=== PATIENT | female | born 1965 | race Caucasian/White ===

== ENCOUNTER 2019-02-28 17:41 | Inpatient (IN) | payer MEDICAID, SELFPAY ==
[2019-02-28 18:04] VITALS: BP 148/90; PULSE 88; RESP 16; TEMP 36.7; O2SAT 97; BMI 33.3
[2019-02-28 18:08] VITALS: BP 148/90
--- NOTE | 2019-02-28 18:09 | ECG_ITS ---
Measurements Intervals [place] Rate: 80 P: 168 OR: 181 QRS: 197 QRSD: 84 T: 176 QT: 367 QTc: 425 SINUS RHYTHM ARM LEADS REVERSED [INVERTED P AND QRS IN I] No previous ECG available for comparison [id number]
--- NOTE | 2019-02-28 18:09 | XR_ITS ---
WS: [id number] Portable PA upright chest, 02/28/2019 Clinical Data: Chest pain Comparison: PA and lateral chest, 10/11/2009 Findings: No nodules, masses or effusions are seen. The heart is normal. The pulmonary vascularity is not increased. No pneumonia or pneumothorax is seen. XR/XR chest 1V portable [id number] Impression: Negative chest.
[2019-02-28 18:46] LABS: Basophils % 0.2 %; Eosinophils # 0.2 10^3/uL (0.0-0.8); Eosinophils % 2.5 %; Hemoglobin 14.4 g/dL (11.5-15.3); Lymphocytes # 2.7 10^3/uL (0.8-4.8); Mean Corpuscular Hemoglobin 28.9 pg (28.0-34.0); Mean Corpuscular Volume 90.4 fL (81-99); Mean Platelet Volume 10.9 fL (7.4-10.4); Monocytes # 0.4 10^3/uL (0.2-0.9); Monocytes % 5.6 %; Neutrophils # 3.1 10^3/uL (1.8-7.7); Neutrophils % 48.5 %; Nucleated Red Blood Cells % 0 %; Platelet Count 322 10^3/cmm (130-400); Red Blood Count 4.98 10^6/uL (4.1-5.3); Red Cell Distribution Width 12.8 % (12.1-15.1); White Blood Count 6.3 10^3/uL (4.0-10.0)
[2019-02-28 19:13] LABS: Alanine Aminotransferase 20 U/L (0-33); Albumin Level 4.5 g/dL (3.5-5.2); Alkaline Phosphatase 86 IU/L (35-105); Anion Gap 18.1 (5-19); Aspartate Amino Transferase 12 U/L (0-32); Blood Urea Nitrogen 13 mg/dL (6-20); Calcium 10.4 mg/Dl (8.6-10.0); Carbon Dioxide 26 mmol/L (22-29); Chloride 93 mmol/L (98-107); Globulin 3.3 g/dL (1.3-4.6); Glomerular Filtration Rate 65.5 mL/min (90-130); Glucose 429 mg/dL (74-109); Potassium 4.1 mmol/L (3.5-5.1); Sodium 133 mmol/L (136-145); Total Bilirubin 0.2 mg/dL (0.15-1.2); Total Protein 7.8 g/dL (6.6-8.7)
[2019-02-28 19:14] LABS: Troponin(5th) Baseline 6 ng/mL (0-10)
--- NOTE | 2019-02-28 20:09 | ECG_ITS ---
Measurements Intervals [place] Rate: 78 P: 32 MT: 174 QRS: 4 QRSD: 87 T: 26 QT: 379 QTc: 433 SINUS RHYTHM No previous ECG available for comparison Electronically Signed On 03-01-2019 22:26:05 MANAGER POLICY by Lelia Aguirre M.D. [id number]
[2019-02-28 20:21] LABS: Troponin 5 2HR Delta 0 ABS# (0-10)
--- NOTE | 2019-02-28 21:25 | ED_ITS ---
Entered by Haven Best, acting as scribe for Katharina Collins Cristy Feb 28, 2019 17:41 HPI - Chest Pain General: Chief Complaint: Chest Pain Stated Complaint: cp Time Seen by Provider: 02/28/19 21:24 Source: patient Mode of arrival: ambulatory Limitations: no limitations History of Present Illness: HPI narrative: 53 yo Female presents to ED with complaint of chest pain. Pt states that it was a dull pain that would come and go. Pt states that she was driving when the episode started. Pt states that she got nauseated. MD complaint: chest pain Onset (ago): hour(s) (noon today) Timing of current episode: episodic and still present Prior episodes: No Onset: during rest Pain location: left chest Pain radiation: left shoulder Quality: dull Relieving factors: remaining still Exacerbating factors: nothing Associated symptoms: Reports nausea; Deny diaphoresis, dyspnea, palpitations or syncope Treatment prior to arrival: none Risk Factors: Coronary artery disease risk factors: diabetes Thoracic aortic dissection risk factors: none Review of Systems General: Reports: other (negative unless marked) Const: Reports: fatigue; Denies: diaphoresis Eyes: Denies: change in vision or blurry vision ENMT: Denies: throat pain, painful swallowing, hoarseness, ear pain, ear discharge, Change in hearing or nasal discharge Card: Reports: chest pain; Denies: palpitations, irregular heart rhythm, syncope, pre-syncope, shortness of breath on exertion or shortness of breath when lying down Resp: Denies: shortness of breath GI: Reports: nausea : Denies: flank pain, painful urination, urinary frequency, urinary urgency, decreased urine ouput, urinary incontinence or blood in urine Musc: Denies: neck pain, back pain, extremity pain, extremity swelling, joint pain, joint swelling, joint warmth or joint stiffness Skin/Breast: Denies: rash, skin tenderness or yellow skin Neuro: Denies: headache, numbness in extremities, weakness in extremities, changes in sensation, lack of coordination, difficulty walking, dizziness, vertigo or confusion Endo: Denies: excessive thirst, tired all the time, cold intolerance, excessive sweating, flushing or hot flashes Adrián/Lymph: Denies: easy bruising, easy bleeding, petechiae or enlarged lymph nodes All/Imm: Denies: hives, throat swelling, tongue swelling, facial swelling or acute wheezing PFSH ED PFSH: Statuses (acute, chronic, etc) shown below reflect problem list status as previously entered and may not be historically accurate Medical History Diabetes (Acute) Social History Smoking and tobacco status: never smoked Physical Exam Const: COMMON NORMALS: no apparent distress, oriented x3, no limitations, healthy appearing and well nourished EXAM LIMITATIONS: no altered mental status GENERAL APPEARANCE: cooperative, well kempt and well developed ORIENTATION/CONSCIOUSNESS: Yes awake HENMT: COMMON NORMALS: normocephalic, head/scalp atraumatic, hearing grossly normal bilaterally, external ears normal, EAC's normal, external nose normal and moist oral mucous membranes HEAD & SCALP: normal to inspection, normocephalic and atraumatic FACE & SINUS: normal facial exam and face symmetric NOSE: external nose normal and nares normal EXTERNAL EAR: Yes external ears normal EXTERNAL AUDITORY CANAL: EAC's normal MOUTH: oral and palatal mucosa normal and tongue normal Eye: COMMON NORMALS: PERRL, EOMs intact bilaterally, conjunctivae normal and no scleral icterus GENERAL EYE: normal appearance of both eyes and normal light reflex CONJUNCTIVA: Yes conjunctivae normal SCLERA: sclerae normal CORNEA: Yes corneas normal PUPIL: Yes PERRL DIRECT OPHTHALMOSCOPY: Yes normal light reflex Neck/C-Spine: COMMON NORMALS: full ROM, no lymphadenopathy, supple, no meningeal signs and no JVD GENERAL: Yes normal visual inspection and Yes trachea midline CERVICAL SPINE: Yes cervical ROM normal Chest: COMMONS NORMALS: inspection of chest normal and palpation of chest normal Resp: COMMON NORMALS: normal respiratory effort, no retractions, no use of accessory muscles and clear to auscultation bilaterally EFFORT & INSPECTION: Yes able to speak in complete sentences AUSCULTATION: clear to auscultation bilaterally Cardio: COMMON NORMALS: no JVD, regular rate, regular rhythm, S1 normal heart sound, S2 normal heart sound, no gallops, no clicks, no murmurs and no rub JUGULAR VENOUS DISTENTION: no JVD RATE: regular rate RHYTHM: regular rhythm HEART SOUNDS: S1 normal and S2 normal GI: COMMON NORMALS: soft to palpation, non-tender, no hepatosplenomegaly and no masses INSPECTION: Yes normal to inspection PALPATION: Yes soft and Yes no hepatosplenomegaly : COMMON NORMALS: Yes no CVA tenderness BLADDER/KIDNEY EXAM: Yes no CVA tenderness Back/Pelvis: COMMON NORMALS: no CVA tenderness, thoracic and lumbar spine normal to inspection, no thoracic nor lumbar tenderness and thoraco-lumbar ROM normal Extremity: COMMON NORMALS: normal to inspection, full ROM, normal capillary refill, no joint enlargement, no clubbing, cyanosis or edema and no calf tenderness Neuro: COMMON NORMALS: oriented x3, CN's II-XII intact bilaterally, moves all extremities, no focal motor deficits and no sensory deficits noted MENINGEAL SIGNS: Yes no meningeal signs Psych: COMMON NORMALS: mental status grossly normal, thought process normal, cooperative, affect normal, speech normal and activity/motor behavior normal APPEARANCE: Yes well kempt SPEECH: Yes normal speech THOUGHT PROCESS: normal thought process Skin: COMMON NORMALS: no rashes or lesions noted, skin turgor normal, no jaundice, no petechiae and no mottling GENERAL SKIN EXAM: no rashes or lesions noted and turgor normal Course Vital Signs: Vital signs: Vital Signs Temperature 98.1 F 02/28/19 18:04 Pulse Rate 88 02/28/19 18:04 Respiratory Rate 16 02/28/19 18:04 Blood Pressure 148/90 02/28/19 18:08 Pulse Oximetry 97 02/28/19 18:04 MDM - Chest Pain MDM Narrative: Medical decision making narrative: Patient comes in with a heart score of 5. She is chest pain-free at this time. Based upon her history I have a think she would be best suited to come in for cardiac rule out and stress test. The case was reviewed with Dr. Chantel Gee and she is in agreement. Lab Data: Labs: Lab Results 02/28/19 02/28/19 02/28/19 Range/Units 18:40 18:40 18:40 WBC 6.3 (4.0-10.0) 10^3/ uL RBC 4.98 (4.1-5.3) 10^6/u L Hgb 14.4 (11.5-15.3) g/dL Hct 45.0 (37.0-47.0) % MCV 90.4 (81-99) fL MCH 28.9 (28.0-34.0) pg MCHC 32.0 (30.0-36.0) g/dL RDW 12.8 (12.1-15.1) % Plt Count 322 (130-400) 10^3/c mm MPV 10.9 H (7.4-10.4) fL Neut % (Auto) 48.5 % Lymph % (Auto) 43.0 % [place] % (Auto) 5.6 % Eos % (Auto) 2.5 % Baso % (Auto) 0.2 % Neut # (Auto) 3.1 (1.8-7.7) 10^3/u L Lymph # (Auto) 2.7 (0.8-4.8) 10^3/u L [place] # (Auto) 0.4 (0.2-0.9) 10^3/u L Eos # (Auto) 0.2 (0.0-0.8) 10^3/u L Baso # (Auto) 0.0 (0.0-0.1) 10^3/u L Nucleated RBC % (a uto) 0 % Nucleated RBCs # 0.0 /100WBC Sodium 133 L (136-145) mmol/L Potassium 4.1 (3.5-5.1) mmol/L Chloride 93 L (98-107) mmol/L Carbon Dioxide 26 (22-29) mmol/L Anion Gap 18.1 (5-19) BUN 13 (6-20) mg/dL Creatinine 0.9 (0.5-0.9) mg/dL GFR Calculation 65.5 L (90-130) mL/min Glucose 429 H (74-109) mg/dL Calcium 10.4 H (8.6-10.0) mg/Dl Total Bilirubin 0.2 (0.15-1.2) mg/dL AST 12 (0-32) U/L ALT 20 (0-33) U/L Alkaline Phosphata se 86 (35-105) IU/L Troponin T Baselin e 6 (0-10) ng/mL Troponin T 120 Min [place] (0-10) ng/mL Total Protein 7.8 (6.6-8.7) g/dL Albumin 4.5 (3.5-5.2) g/dL Globulin 3.3 (1.3-4.6) g/dL 02/28/19 Range/Units 19:55 WBC (4.0-10.0) 10^3/ uL RBC (4.1-5.3) 10^6/u L Hgb (11.5-15.3) g/dL Hct (37.0-47.0) % MCV (81-99) fL MCH (28.0-34.0) pg MCHC (30.0-36.0) g/dL RDW (12.1-15.1) % Plt Count (130-400) 10^3/c mm MPV (7.4-10.4) fL Neut % (Auto) % Lymph % (Auto) % [place] % (Auto) % Eos % (Auto) % Baso % (Auto) % Neut # (Auto) (1.8-7.7) 10^3/u L Lymph # (Auto) (0.8-4.8) 10^3/u L [place] # (Auto) (0.2-0.9) 10^3/u L Eos # (Auto) (0.0-0.8) 10^3/u L Baso # (Auto) (0.0-0.1) 10^3/u L Nucleated RBC % (a uto) % Nucleated RBCs # /100WBC Sodium (136-145) mmol/L Potassium (3.5-5.1) mmol/L Chloride (98-107) mmol/L Carbon Dioxide (22-29) mmol/L Anion Gap (5-19) BUN (6-20) mg/dL Creatinine (0.5-0.9) mg/dL GFR Calculation (90-130) mL/min Glucose (74-109) mg/dL Calcium (8.6-10.0) mg/Dl Total Bilirubin (0.15-1.2) mg/dL AST (0-32) U/L ALT (0-33) U/L Alkaline Phosphata se (35-105) IU/L Troponin T Baselin e (0-10) ng/mL Troponin T 120 Min [place] 6.00 (0-10) ng/mL Total Protein (6.6-8.7) g/dL Albumin (3.5-5.2) g/dL Globulin (1.3-4.6) g/dL Discharge Plan Discharge Patient Disposition: Placed in Observation Clinical Impression: Chest pain Condition: Stable Referrals: Lakisha Ellis, HAMPER MAKER MACHINE-C [Primary Care Provider] - Coding Level of Care Code ED Manager Contract for Chg Fwd Exam Problem Focused The documentation recorded by the Estephania james Carmen, accurately reflects the service I personally performed and the decisions made by Karina corey Eli N Feb 28, 2019 17:41
--- NOTE | 2019-02-28 21:37 | PC.NURSE ---
Placed patient on the monitoring manager
[2019-03-01] VITALS (10 sets, daily range): BP systolic 122–148; BP diastolic 72–86; PULSE 64–84; RESP 16–20; TEMP 36.4–36.9; O2SAT 95–98
--- NOTE | 2019-03-01 00:09 | ECG_ITS ---
Measurements Intervals [place] Rate: 70 P: 46 CO: 189 QRS: 13 QRSD: 84 T: 30 QT: 386 QTc: 419 SINUS RHYTHM No previous ECG available for comparison Electronically Signed On 03-01-2019 22:26:17 NANOSYSTEMS ENGINEER by Lelia Aguirre M.D. [id number]
--- NOTE | 2019-03-01 00:31 | NMCV_ITS ---
Kriss Garcia Age: 53 Gender: F : 1965 Exam Date: 03/01/2019 00:31 Ordering Phys: Rufina Blanco MD Technologist: JAYLON Huerta Exam Location: [facility] Indications: Chest Pain STRESS TEST Please see separate stress test report in [facility] for full findings IMAGE PROTOCOL Rest/Stress 1 Lexiscan Day Radiopharmaceutical Dose (mCi) Administration Site Administered by Rest: Tc-99m 10.8 IV JAYLON Huerta Sestamibi Stress:Tc-99m 32.5 IV JAYLON Huerta Sestamibi Rest: 01-Mar-2019 60 Discovery 630 Stress: 01-Mar-2019 60 Discovery 630 0.4mg Lexiscan. Images obtained in supine and prone position. SPECT RESULTS Technical Quality: Good Raw Data Analysis: Normal, Breast attenuation. 38C Chest Wall, Soft tissue attenuation. Image Corrections: No attenuation or motion correction applied Summed Stress Score: 1 Summed Rest Score: 1 Summed Difference Score: 0 PERFUSION FINDINGS Small size perfusion abnormality of mild severity of apical inferior wall on rest and stress images with homogeneous tracer uptake on prone stress images. This is likely suggestive of attenuation artifact. FUNCTIONAL RESULTS (calculated via Gated SPECT) Stress Image LV EF (%): 54 Stress EDV (mL):92 TID: 1.03 Stress ESV (mL):42 FUNCTIONAL FINDINGS: The left ventricle is normal in size. Transient Ischemia Dilatation of 1. There is normal left ventricular systolic function. The left ventricular ejection fraction is normal with a value of 54%. There is normal left ventricular wall thickening. IMPRESSIONS 1. Small sized fixed perfusion abnormality of apical inferior wall with homogeneous tracer uptake on prone stress images. This is suggestive of attenuation artifact. 2. Overall left ventricular systolic function is normal without regional wall motion abnormalities. 3. The left ventricular ejection fraction is normal with a value of 54%. 4. No coronary ischemia based on the study. Ivy Sotelo MD (Electronically Signed) Final Date: 01 March 2019 17:54 S
--- NOTE | 2019-03-01 00:31 | ECG_ITS ---
NAME OF STUDY: LEXISCAN SESTAMIBI STRESS TEST INDICATION: Chest Pain PROCEDURE: At the baseline, the blood pressure was 128/71 mmHg, oxygen saturation 95% with a heart rate of 75 bpm. The electrocardiogram showed normal sinus rhythm, normal axis and possible old anteroseptal infarct. The Lexiscan was infused over a period of 20 seconds. A total of 0.4 milligrams of Lexiscan was infused. The stress phase was continued for a total of 5 minutes. Heart rate at the end of the stress phase was 84 bpm, oxygen saturation 97% with a blood pressure 122/79 mmHg. The EKG at the peak infusion revealed sinus rhythm with no significant ST-T wave changes. Sestamibi was injected 20 seconds after the Lexiscan infusion. Blood pressure at the end of the recovery phase was 124/74 mmHg, oxygen saturation 97% with a heart rate of 85 beats per minute. CONCLUSION: 1. Normal EKG response to LexiScan infusion. 2. No LexiScan induced chest pain or cardiac arrhythmia. 3. Normal blood pressure and heart rate response. 4. Sestamibi/sestamibi perfusion scan pending; see separate report. Electronically Signed On 03-01-2019 17:57:00 LEGAL ACTIVITY ADJUDICATOR by Ivy Sotelo M.D. [id number]
--- NOTE | 2019-03-01 00:35 | PM.HP ---
Providers/Chief Complaint Admitting Physician: Rufina Blanco MD Primary Care Provider: Lakisha Ellis Chief Complaint: Chest pain History of Present Illness Kriss Garcia is a 53 year old female with PMHx of IDDM type II, Morbid obesity, Hypertension, Hyperlipidemia; presents from home with complaints of substernal chest discomfort that started earlier this afternoon while she was driving home. She describes it as a dull tooth ache, primarily in the substernal area with some radiation to the left arm and area underneath the left breast. Pain is intermittent, exacerbated by any exertion/activity. She denies having had prior episode of the same in the past. She felt hot and flushed but denies any shortness of breath, nausea/vomiting. She does recall having had some kind of cardiac work-up though this was over a long time ago. She is insulin-dependent and takes metformin as well for her history of diabetes. She is not a smoker, does admit to not taking her medications as prescribed, intermittently checks her blood sugar which ranges between 250 and 300. There is a positive family history for CAD in her father and paternal grandfather. She has had a history of an irregular heartbeat and was previously taking metoprolol. She denies taking any medications for relief. She called her sister who is her nurse and was advised to seek medical attention in the ER which is what she did. She currently still has some discomfort in the substernal area during my assessment in the ER but has subsided some. CBC is within normal limits, she has mild hyponatremia with a sodium of 133, normal renal function, blood sugar of 429, initial troponin with no noted delta change, no acute ischemic changes noted on EKG. Vital signs are stable. I discussed stress testing which she is agreeable to. Review of Systems Const: Denies: fever, chills or change in appetite Eyes: Denies: change in vision ENMT: Denies: dry mouth Card: Reports: chest pain; Denies: palpitations, irregular heart rhythm, edema, swelling of feet/ankles, lightheadedness, syncope or shortness of breath on exertion Resp: Denies: shortness of breath or productive cough GI: Denies: abdominal pain, nausea, vomiting, vomiting blood or blood in stool : Denies: difficulty urinating, painful urination or urinary frequency Musc: Denies: back pain Skin/Breast: Denies: rash Neuro: Denies: numbness in extremities or weakness in extremities Psych: Denies: anxiety Medications/Allergies Allergies Allergy/AdvReac Type Severity Reaction Status Date / Time No Known Allergies Allergy Verified 02/28/19 18:08 Additional Medication Information Additional Medication Information: -pending med rec PFSH Acute PFSH: Statuses (acute, chronic, etc) shown below reflect problem list status as previously entered and may not be historically accurate Medical History (Updated 03/01/19 @ 01:22 by Rufina Blanco MD) Diabetes (Acute) insulin dependent HTN (hypertension) (Acute) Hyperlipidemia (Acute) Morbid obesity (Acute) Surgical History (Updated 03/01/19 @ 01:18 by Rufina Blanco MD) H/O tubal ligation (Acute) Family History Mother Cancer Colon cancer Father CAD (coronary artery disease) Other Diabetes Social History (Updated 03/01/19 @ 01:19 by Rufina Blanco MD) Smoking and tobacco status: never smoked Alcohol intake: never Substance/Drug Use: never Household members: family Housing: House Vitals/I&O/Wt Last Vital Signs Temp 98.1 F 02/28/19 18:04 Pulse 88 02/28/19 18:04 Resp 16 02/28/19 18:04 BP 148/90 02/28/19 18:08 Pulse Ox 97 02/28/19 18:04 Weight last 48 hrs Weight 82.554 kg Physical Exam Const: COMMON NORMALS: no apparent distress and oriented x3 GENERAL APPEARANCE: cooperative and comfortable NUTRITIONAL APPEARANCE: obese morbidly obese ORIENTATION/CONSCIOUSNESS: Yes awake HENMT: COMMON NORMALS: normocephalic, head/scalp atraumatic, hearing grossly normal bilaterally and moist oral mucous membranes HEAD & SCALP: normocephalic and atraumatic Eye: COMMON NORMALS: PERRL, EOMs intact bilaterally and conjunctivae normal CONJUNCTIVA: Yes conjunctivae normal PUPIL: Yes PERRL Neck/C-Spine: COMMON NORMALS: full ROM GENERAL: Yes normal visual inspection and Yes trachea midline Chest: COMMONS NORMALS: inspection of chest normal and palpation of chest normal Resp: COMMON NORMALS: normal respiratory effort, no retractions, no use of accessory muscles and clear to auscultation bilaterally EFFORT & INSPECTION: Yes able to speak in complete sentences, Yes symmetric chest movement and No tachypneic AUSCULTATION: clear to auscultation bilaterally Cardio: COMMON NORMALS: regular rate, regular rhythm, S1 normal heart sound, S2 normal heart sound and no murmurs RATE: regular rate RHYTHM: regular rhythm HEART SOUNDS: S1 normal and S2 normal GI: COMMON NORMALS: normal to inspection, nondistended, normoactive bowel sounds, soft to palpation and non-tender PALPATION: Yes soft Extremity: COMMON NORMALS: normal to inspection, full ROM and no clubbing, cyanosis or edema; negative for no pedal edema Neuro: COMMON NORMALS: oriented x3, moves all extremities, no focal motor deficits, no sensory deficits noted and gait normal Psych: COMMON NORMALS: mental status grossly normal, thought process normal, cooperative, affect normal and speech normal SPEECH: Yes normal speech THOUGHT PROCESS: normal thought process Skin: COMMON NORMALS: no rashes or lesions noted, no jaundice, no petechiae and no mottling GENERAL SKIN EXAM: no rashes or lesions noted Data : 02/28/19 18:40 02/28/19 18:40 A&P Assessment and plan (1) Chest pain: -chest pain with some typical features -risk factors for CAD including IDDM type II, morbid obesity, HTN, Hyperlipidemia, +FHx -stress testing in AM; NPO after midnight, IVF -telemetry monitoring -monitor vital signs -order lipid panel, A1c in AM Status: Acute Qualifiers: Chest pain type: unspecified Qualified Code(s): R07.9 - Chest pain, unspecified Code(s): R07.9 - Chest pain, unspecified (2) HTN (hypertension): -monitor vital signs -resume oral antihypertensives once med rec confirmed Status: Acute Qualifiers: Hypertension type: essential hypertension Qualified Code(s): I10 - Essential (primary) hypertension Code(s): I10 - Essential (primary) hypertension (3) Hyperlipidemia: -check lipid panel in AM Status: Acute Qualifiers: Hyperlipidemia type: unspecified Qualified Code(s): E78.5 - Hyperlipidemia, unspecified Code(s): E78.5 - Hyperlipidemia, unspecified (4) Morbid obesity: -BMI-33 kg/m2 Status: Acute Code(s): E66.01 - Morbid (severe) obesity due to excess calories (5) Diabetes: -check A1c in AM -Accuchecks; ISS -NPO for stress testing in AM, diabetic diet after Status: Acute Qualifiers: Diabetes mellitus type: type 2 Diabetes mellitus terminal superintendent insulin use: with assisted use Diabetes mellitus complication status: without complication Qualified Code(s): E11.9 - Type 2 diabetes mellitus without complications; Z79.4 - director long term care (current) use of insulin Code(s): E11.9 - Type 2 diabetes mellitus without complications Attestations Medical Necessity Statement*: Kriss Garcia's hospital stay will be less than 2 midnights for work-up of chest pain rule out ACS including stress testing in a.m. Time Spent in Patient Care: Greater than 35 minutes (>than 50% of time spent in counselling and/or direct pt care on unit). Coding Level of Care Code Acute Contact Center Associate for [facility] Fwd Diagnoses Chest pain R07.9 Chest pain type: unspecified HTN (hypertension) I10 Hypertension type: essential hypertension Hyperlipidemia E78.5 Hyperlipidemia type: unspecified Morbid obesity E66.01 Diabetes E11.9; Z79.4 Diabetes mellitus type: type 2 Diabetes mellitus assisted insulin use: with terminal superintendent use Diabetes mellitus complication status: without complication
[2019-03-01 00:52] LABS: Glucose Point of Care 354 mg/dL (70-110)
[2019-03-01] MEDS: dextrose 5%-sod chloride 0.9% 1,000 ML 75 ML IV ×2 (01:06→16:42)
[2019-03-01 01:11] LABS: Troponin 5 6HR Delta 0 ng/L (0-12)
[2019-03-01 02:47] LABS: Basophils % 0.3 %; Eosinophils # 0.2 10^3/uL (0.0-0.8); Eosinophils % 3.1 %; Hemoglobin 13.5 g/dL (11.5-15.3); Lymphocytes # 2.3 10^3/uL (0.8-4.8); Lymphocytes % 38.1 %; Mean Corpuscular HGB Conc 32.9 g/dL (30.0-36.0); Mean Corpuscular Hemoglobin 28.2 pg (28.0-34.0); Mean Corpuscular Volume 85.8 fL (81-99); Mean Platelet Volume 10.9 fL (7.4-10.4); Monocytes # 0.4 10^3/uL (0.2-0.9); Monocytes % 6.6 %; Neutrophils # 3.1 10^3/uL (1.8-7.7); Neutrophils % 51.6 %; Nucleated Red Blood Cells % 0 %; Platelet Count 290 10^3/cmm (130-400); Red Blood Count 4.78 10^6/uL (4.1-5.3); Red Cell Distribution Width 12.4 % (12.1-15.1); White Blood Count 6.1 10^3/uL (4.0-10.0)
[2019-03-01 03:25] LABS: Alanine Aminotransferase 18 U/L (0-33); Albumin Level 4.4 g/dL (3.5-5.2); Alkaline Phosphatase 73 IU/L (35-105); Anion Gap 14.8 (5-19); Aspartate Amino Transferase 11 U/L (0-32); Blood Urea Nitrogen 13 mg/dL (6-20); Calcium 9.8 mg/Dl (8.6-10.0); Carbon Dioxide 25 mmol/L (22-29); Chloride 97 mmol/L (98-107); Chol HDL Ratio 8.61 mg/dL (0.0-4.40); Cholesterol 310 mg/dL (0-200); Globulin 2.5 g/dL (1.3-4.6); Glomerular Filtration Rate 129.1 mL/min (90-130); Glucose 400 mg/dL (74-109); HDL Cholesterol 36 mg/dL (60-100); LDL Cholesterol Calculated 201 mg/dL (50-129); LDL HDL Ratio 5.58 RATIO (0.00-3.22); Potassium 3.8 mmol/L (3.5-5.1); Sodium 133 mmol/L (136-145); Total Bilirubin 0.3 mg/dL (0.15-1.2); Total Protein 6.9 g/dL (6.6-8.7); Triglycerides 363 mg/dL (0-150)
[2019-03-01 03:51] LABS: Estmated Average Glucose 326
[2019-03-01 06:44] LABS: Glucose Point of Care 254 mg/dL (70-110)
[2019-03-01 10:31] LABS: Glucose Point of Care 223 mg/dL (70-110)
--- NOTE | 2019-03-01 12:13 | PC.CHAP ---
Pastoral Care Encounter/Spiritual Assessment Type of Contact [] Declined supervisor covering and lining visit [] Patient/Family/Request visit [] Outpatient visit [] Follow-up visit [] Physician referral [] Code/Alert [] Routine visit [] Staff referral [] Actively dying [x] Patient sleeping [] Family support [] [] Out of room [] Palliative care [] [] Receiving care in room [] Pre-surgical visit [] Trauma [] Long length of stay [] ICU visit [] Other: Relational/Emotional Strength [] Patient feels connected with others/family/visitors/staff [] Distress [] Loneliness/isolation [] Abandonment Spirituality of Patient [] Person of Roxanne [] Attends Mosque of their Roxanne [] Believes in Prayer [] Reads Bible or Roman Catholic materials [] There are Spiritual issues to be addressed Vp Informatics Interventions [] Prayer [] Active listening [] Non-anxious presence [] Spiritual/emotional support [] Crisis/trauma care [] Spiritual counseling [] Bereavement support [] Provided bereavement packet [] Provided Bible/devotional materials [] Provided toy/stuffed animal, coloring book to patient or family member [] Completed spiritual assessment [] Provided Communion [] Anointing/[place] [] Salvation [] Other: Impact on Illness or Injury [] Angry [] Fearful [] Anxious [] Often cries [] Exhaustion [] Unable to work [] Unable to attend mormonism [] Unable to walk/stand [] Unable to read [] Unable to drive [] Unable to eat/drink [] Unable to sleep [] Unable to be with family [] Other: Summary Time spent with patient
[2019-03-01] MEDS: acetaminophen 500 mg Tablet 1000 MG PO ×2 (12:28→20:01)
[2019-03-01] MEDS: regadenoson 0.4 Mg/5 ml Syringe IVP (13:13)
--- NOTE | 2019-03-01 15:19 | PM.PN ---
Subjective Subjective: Interval history: She seems to be doing better this afternoon. No chest pain or shortness of breath through the day. Discussed with her more her chest pain that she had yesterday which prompted her to come in. Sounds like this happened while she was driving. Notes shortness of breath associated with it. No diaphoresis. She has been under a lot of stress lately her father 2 weeks ago. Other family members have been having poor health. She feels like it is probably more related to that. She became very tearful as she was discussing this. Vitals/I&O/Wt Last Vital Signs Temp 98.0 F 03/01/19 11:20 Pulse 75 03/01/19 14:35 Resp 18 03/01/19 11:20 BP 136/72 03/01/19 13:15 Pulse Ox 97 03/01/19 14:35 03/01/19 03/01/19 03/01/19 06:59 14:59 22:59 Intake Total 0 / 0 Output Total 1000 / 1000 Balance 0 / 0 -1000 / -1000 Weight last 48 hrs Weight 182 lb Physical Exam Narrative: EXAM NARRATIVE: General: No acute distress, Alert. Well nourished. Heart: Regular rate and rhythm. No murmurs, rubs or gallops. Normal capillary refill. Lungs: Clear to auscultation. No wheezes, rhonchi or rales. Abdomen: Positive bowel sounds. Non-tender, non-distended. No hepatosplenomegaly. No gaurding. Extremities: No clubbing, cyanosis, or edema. Negative Andreina's A&P Assessment and plan (1) Chest pain: I suspect this is probably more due to her stress and anxiety. Troponins were negative. She does have some significant cardiac risk factors though. We will await results of her stress test. If this is negative we will proceed with discharge home. Status: Acute Qualifiers: Chest pain type: unspecified Qualified Code(s): R07.9 - Chest pain, unspecified Code(s): R07.9 - Chest pain, unspecified (2) Diabetes: Status: Acute Qualifiers: Diabetes mellitus type: type 2 Diabetes mellitus superintendent terminal insulin use: with superintendent terminal use Diabetes mellitus complication status: without complication Qualified Code(s): E11.9 - Type 2 diabetes mellitus without complications; Z79.4 - terminal system operator (current) use of insulin Code(s): E11.9 - Type 2 diabetes mellitus without complications Attestations Medical Necessity Statement*: Likely discharge today Coding Level of Care Code Acute 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
[2019-03-01 16:50] LABS: Glucose Point of Care 217 mg/dL (70-110)
--- NOTE | 2019-03-01 21:05 | PC.NURSE ---
pain pain has improved, pt stated pain in head is at a 2 on a 0-10 scale.
[2019-03-01 21:20] LABS: Glucose Point of Care 351 mg/dL (70-110)
[2019-03-02] VITALS: BP 123/76; PULSE 67; RESP 18; TEMP 36.6; O2SAT 97
[2019-03-02 01:40] VITALS: PULSE 81; O2SAT 98
[2019-03-02 04:00] VITALS: BP 126/71; PULSE 87; RESP 20; TEMP 36.4; O2SAT 97
[2019-03-02] MEDS: dextrose 5%-sod chloride 0.9% 1,000 ML 75 ML IV (05:46)
[2019-03-02 07:08] LABS: Glucose Point of Care 327 mg/dL (70-110)
[2019-03-02 08:00] VITALS: BP 143/82; PULSE 76; RESP 18; TEMP 37.1; O2SAT 97
--- NOTE | 2019-03-02 09:23 | P.DS_ITS ---
Discharge Providers Date of Admission: 02/28/19 23:11 Date of Discharge: 03/02/19 Attending Provider at Admission: Rufina Blanco MD Attending Provider at Discharge: Natacha Tijerina MD Primary Care Provider: Lakisha Ellis Diagnoses at Discharge Discharge Diagnosis (1) Chest pain: Status: Acute Problem details: Resolved Stress test does not show any evidence for ischemic changes, this was discussed with patient, EKG and troponin negative for any acute change Qualifiers: Chest pain type: unspecified Qualified Code(s): R07.9 - Chest pain, unspecified (2) Diabetes: Status: Acute Problem details: Patient reports she had only been taking metformin at home prior to admissions at 2000 mg twice a day, instructed to take metformin at thousand milligrams twice daily and started back on Levemir 25 units a day, to continue to check her blood sugars and provide a blood glucose log to her primary care provider for further adjustments as needed Qualifiers: Diabetes mellitus complication status: without complication Diabetes mellitus longwall shearer operator insulin use: with longwall shearer operator use Diabetes mellitus type: type 2 Qualified Code(s): E11.9 - Type 2 diabetes mellitus without complications; Z79.4 - assisted (current) use of insulin Reason for Visit Reason for Visit: Reason For Visit: Chest pain Hospital Course Hospital Course: Patient was seen and evaluated in the emergency department and admitted for further monitoring due to concern for chest pain. Patient has risk factors for coronary artery disease including family history, hypertension, hyperlipidemia, obesity and diabetes. She had stress test for further evaluation which showed no evidence of any ischemic changes and patient's chest pain resolved. She reported that she had been under significant stress due to the loss of her father 2 weeks ago, discussed that this may be contributing to some of her symptoms. Patient also had significantly elevated blood sugars and poorly controlled blood glucose. She reported that she had only been taking her metformin and had not been taking any other medications at home, discussed with her that need to restart insulin at this point due to her significantly elevated A1c, she verbalized understanding. She reported that she does have Levemir pen at home and agreed to go back on this. Discussed that since she had been off of it for some time we will start out at 25 units and then increase as indicated based on her blood glucose readings with her primary care provider. Discharge Summary: Discharge to home with close follow-up with her primary care provider in 3 to 5 days for further monitoring and adjustments of insulin regimen, due to poorly controlled diabetes mellitus Physical Exam Const: COMMON NORMALS: oriented x3 and alert GENERAL APPEARANCE: cooperative ORIENTATION/CONSCIOUSNESS: Yes awake, Yes oriented to person, Yes oriented to place and Yes oriented to time HENMT: COMMON NORMALS: normocephalic and head/scalp atraumatic HEAD & SCALP: normocephalic and atraumatic Eye: COMMON NORMALS: PERRL PUPIL: Yes PERRL Neck/C-Spine: COMMON NORMALS: supple GENERAL: Yes normal visual inspection Resp: COMMON NORMALS: normal respiratory effort and clear to auscultation bilaterally EFFORT & INSPECTION: Yes able to speak in complete sentences AUSCULTATION: clear to auscultation bilaterally, no rhonchi and no wheezes Cardio: COMMON NORMALS: regular rate, regular rhythm and no murmurs RATE: regular rate RHYTHM: regular rhythm GI: COMMON NORMALS: soft to palpation and non-tender INSPECTION: No abdominal distension AUSCULTATION: Yes normoactive bowel sounds PALPATION: Yes soft Extremity: COMMON NORMALS: no clubbing, cyanosis or edema and no calf tenderness Neuro: COMMON NORMALS: oriented x3, CN's II-XII intact bilaterally, moves all extremities and no focal motor deficits SENSORIUM/ORIENTATION: Yes alert, Yes oriented to person, Yes oriented to place and Yes oriented to time SPEECH: speech normal Psych: COMMON NORMALS: mental status grossly normal and cooperative Skin: COMMON NORMALS: no rashes or lesions noted GENERAL SKIN EXAM: no rashes or lesions noted Discharge Data Data Completed and Pending: Completed Studies During Hospitalization Category Date Time Status Sestamibi Stress Test Request Lakshmi ne Exams 03/01/19 00:31 Completed XR chest 1V roque ble [id number] Urgent Exams 02/28/19 18:09 Completed NM elisa perf SPECT r&s* [id number] Routin e Nuc Med 03/01/19 00:31 Completed Labs from last 24 hours 03/02/19 03/01/19 03/01/19 06:47 21:12 16:45 POC Glucose 327 351 217 03/01/19 10:26 POC Glucose 223 Vitals: Last Vital Signs Temp 98.7 F 03/02/19 08:00 Pulse 76 03/02/19 08:00 Resp 18 03/02/19 08:00 BP 143/82 03/02/19 08:00 Pulse Ox 97 03/02/19 08:00 Discharge Plan Discharge Patient Disposition: Home, Self-Care Condition: Stable Prescriptions: Continued atorvastatin 80 mg tablet 80 mg PO BEDTIME RF: 0 buspirone 10 mg tablet 10 mg PO BID RF: 0 lisinopril 10 mg tablet 10 mg PO DAILY RF: 0 metformin 500 mg tablet extended release 24 hr 2,000 mg PO DAILY RF: 0 metoprolol tartrate 25 mg tablet 25 mg PO BID RF: 0 (DME) TRUEplus Pen Needle 32 gauge x 5/32 needle MISCELLANEOUS RF: 0 trazodone 100 mg tablet 100 mg PO DAILY RF: 0 venlafaxine 150 mg capsule,extended release 24hr 150 mg PO DAILY RF: 0 Changed Levemir FlexTouch U-100 Insuln 100 unit/mL (3 mL) insulin pen 25 unit SUBCUT DAILY 30 Days Qty: 1 RF: 0 Discontinued Byetta 10 mcg/dose(250 mcg/mL) 2.4 mL pen injector 10 mcg SUBCUT BID RF: 0 Novolog Flexpen U-100 Insulin 100 unit/mL (3 mL) insulin pen 3 - 21 unit SUBCUT TID RF: 0 Discharge Orders: Discharge Order (Routine); Ordered 03/02/19 Ordered By: Natacha Tijerina Referrals: Lakisha Ellis FNP-C [Primary Care Provider] - 1-3 days (Your appointment is scheduled with Duc Lockwood on 03/05/19 8:00 am. Please bring your medications with you to this appointment. You will need to take blood glucose log to primary care provider for further adjustment of insulin regimen) Discharge Diet: Diabetic Discharge Activity: Increase activity as tolerated Patient Instructions: Type 2 Diabetes, Hypertension, Chest Pain (GEN), Obesity (GEN) Activity Restrictions/Additional Instructions: Metformin 2000mg daily. Patient had stopped taking Levemir, instructed to restart at a decreased dose and titrate up as directed by primary care provider. Restart Levemir at 25 units at bedtime, continue to check your blood glucose and present a log to your primary care provider for further insulin adjustment as indicated. Byetta discontinued as patient reported that she had not been taking this medication. NovoLog discontinued at this time as patient reported she is no longer taking this medication. 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
[2019-03-02 10:31] LABS: Glucose Point of Care 420 mg/dL (70-110)
[2019-03-02 11:09] VITALS: BP 140/80; PULSE 72; RESP 18; TEMP 36.8; O2SAT 97
[2019-03-02 14:05] VITALS: BP 140/80; PULSE 72; RESP 18; TEMP 36.8; O2SAT 97
== END 2019-03-02 13:58 | disposition home or self-care (01) | DRG 313 ==
LOC: ER 23:07 → MEDSURG 03-01 00:35
PROVIDERS: Admitting Provider Family Medicine; Emergency Provider Emergency Medicine; Family Provider Nurse Practitioner; PCP Nurse Practitioner; Visit Provider Family Medicine
DX: R07.9 Chest pain, unspecified (principal); E11.9 Type 2 diabetes mellitus without complications; Z79.4 Long term (current) use of insulin; Z82.49 Family history of ischemic heart disease and other diseases of the circulatory system; E66.01 Morbid (severe) obesity due to excess calories; E78.5 Hyperlipidemia, unspecified; I10 Essential (primary) hypertension; Z68.33 Body mass index [BMI] 33.0-33.9, adult
CPT/HCPCS: 12345; 36415; 36416; 71045; 78452; 80053; 80061; 82962; 83036; 84484; 85025; 93005; 93017; 96372; 99282; A9500; G0378; J1815; J2785

== ENCOUNTER 2019-04-03 07:13 | Outpatient (CLI) | payer MEDICAID, SELFPAY ==
--- NOTE | 2019-04-03 07:15 | US_ITS ---
WS: [id number] ABDOMINAL ULTRASOUND LIMITED REASON FOR VISIT: right upper abd pain TECHNIQUE: Grayscale and Doppler ultrasound examination of the abdomen. FINDINGS: Pancreas: Appears to be within normal limits. Abdominal aorta and IVC: Appears to be within normal limits. Liver: Liver measures 13.7 cm in length. Normal echotexture. Normal hepatopedal portal circulation. Gallbladder: Gallbladder wall thickness measures 1.1 mm. No stones identified. Common bile duct measu res 0.54 cm. Right kidney: Right kidney measures 11.2 cm x 5.7 cm x 5.5 cm. No hydronephrosis no stones. US/US gall bladder [id number] IMPRESSION: Negative right upper quadrant ultrasound.
== END 2019-04-03 07:14 | disposition home or self-care (01) ==
PROVIDERS: Family Provider Nurse Practitioner; PCP Nurse Practitioner; Visit Provider Nurse Practitioner
DX: R10.11 Right upper quadrant pain (principal)
CPT/HCPCS: 76705

== ENCOUNTER → 2019-08-30 08:08 | Outpatient (BNVA) | payer MEDICAID, SELFPAY | PROVIDERS: Family Provider Nurse Practitioner; PCP Nurse Practitioner; Visit Provider Nurse Practitioner | DX: E11.9 Type 2 diabetes mellitus without complications (principal); Z79.4 Long term (current) use of insulin; E78.5 Hyperlipidemia, unspecified; I10 Essential (primary) hypertension; E66.01 Morbid (severe) obesity due to excess calories | CPT/HCPCS: 80053; 80061; 83036 ==

== ENCOUNTER → 2019-09-05 10:27 | Outpatient (BNVA) | payer MEDICAID, SELFPAY | PROVIDERS: Family Provider Nurse Practitioner; PCP Nurse Practitioner; Visit Provider Obstetrics & Gynecology | DX: Z12.4 Encounter for screening for malignant neoplasm of cervix (principal); Z12.39 Encounter for other screening for malignant neoplasm of breast; Z12.11 Encounter for screening for malignant neoplasm of colon | CPT/HCPCS: 88175 ==

== ENCOUNTER → 2019-09-24 12:03 | Outpatient (BNVA) | payer MEDICAID, SELFPAY | PROVIDERS: Family Provider Nurse Practitioner; PCP Nurse Practitioner; Visit Provider Obstetrics & Gynecology | DX: L29.2 Pruritus vulvae (principal) | CPT/HCPCS: 88305 ==

== ENCOUNTER 2019-11-30 14:04 | Outpatient (CLI) | payer MEDICAID, SELFPAY ==
--- NOTE | 2019-11-30 14:30 | MM_ITS ---
WS: [id number] BILATERAL SCREENING DIGITAL MAMMOGRAM WITH CAD HISTORY: screening COMPARISON: None available. Bilateral CC and MLO views submitted. Computer aided detection analyzed. Breast composition: There are scattered areas of fibroglandular density. No suspicious masses, microc alcifications or architectural distortion. Intramammary lymph node at the LEFT axillary tail. MM/[place] [id number] IMPRESSION: BI-RADS: 2-Benign FOLLOW UP: 1 Year Follow-up
== END 2019-11-30 14:05 | disposition home or self-care (01) ==
LOC: RADSHAW 14:08
PROVIDERS: PCP Nurse Practitioner; Visit Provider Obstetrics & Gynecology
DX: Z12.31 Encounter for screening mammogram for malignant neoplasm of breast (principal)
CPT/HCPCS: 77067

== ENCOUNTER → 2019-12-28 08:49 | Outpatient (BNVA) | payer MEDICAID, SELFPAY | PROVIDERS: PCP Nurse Practitioner; Visit Provider Nurse Practitioner | DX: E78.5 Hyperlipidemia, unspecified (principal); E11.9 Type 2 diabetes mellitus without complications; Z79.4 Long term (current) use of insulin; I10 Essential (primary) hypertension | CPT/HCPCS: 80053; 80061; 83036; 85025; 86803 ==

== ENCOUNTER → 2020-01-16 08:33 | Outpatient (BNVA) | payer MEDICAID, SELFPAY | PROVIDERS: PCP Nurse Practitioner; Referring Provider Nurse Practitioner; Visit Provider Internal Medicine | DX: E11.65 Type 2 diabetes mellitus with hyperglycemia (principal); Z79.4 Long term (current) use of insulin | CPT/HCPCS: 82947; 84681; 99203 ==

== ENCOUNTER → 2020-03-20 08:14 | Outpatient (BNVA) | payer MEDICAID, SELFPAY | PROVIDERS: PCP Nurse Practitioner; Visit Provider Nurse Practitioner | DX: E11.65 Type 2 diabetes mellitus with hyperglycemia (principal); E78.5 Hyperlipidemia, unspecified; I10 Essential (primary) hypertension; Z79.4 Long term (current) use of insulin | CPT/HCPCS: 80053; 80061; 83036; 85025 ==

== ENCOUNTER → 2020-06-20 08:27 | Outpatient (BNVA) | payer MEDICAID, SELFPAY | PROVIDERS: PCP Nurse Practitioner; Visit Provider Nurse Practitioner | DX: E11.65 Type 2 diabetes mellitus with hyperglycemia (principal); Z79.4 Long term (current) use of insulin; E78.5 Hyperlipidemia, unspecified; I10 Essential (primary) hypertension | CPT/HCPCS: 80053; 80061; 83036 ==

== ENCOUNTER → 2020-06-23 08:40 | Outpatient (BNVA) | payer MEDICAID, SELFPAY | PROVIDERS: PCP Nurse Practitioner; Visit Provider Nurse Practitioner | DX: F41.8 Other specified anxiety disorders (principal); E11.65 Type 2 diabetes mellitus with hyperglycemia; I10 Essential (primary) hypertension; E78.5 Hyperlipidemia, unspecified; K06.9 Disorder of gingiva and edentulous alveolar ridge, unspecified; Z79.4 Long term (current) use of insulin | CPT/HCPCS: 81000 ==

== ENCOUNTER 2020-08-20 20:36 | Emergency (ER) | payer MEDICAID, SELFPAY ==
[2020-08-20 20:52] VITALS: BP 154/82; PULSE 85; RESP 16; TEMP 36.9; O2SAT 95; BMI 35.6
--- NOTE | 2020-08-20 21:19 | XRR_ITS ---
PROCEDURE INFORMATION: Exam: XR Right Tibia and Fibula Exam date and time: 08/20/2020 9:19 PM Age: 55 years old Clinical indication: Injury or trauma; Other: Poss fb; Lower leg; Foreign body involvement not specified; Injury date: 08/20/20; Injury details: Mowing two weeks ago, was hit by rock; Patient HX: Seeping/swollen wound lateral lower right leg. HX dm 1; Additional info: Lateral wound; Poss fb/rock TECHNIQUE: Imaging protocol: XR Right tibia and fibula. Views: 2 views. COMPARISON: No relevant prior studies available. FINDINGS: Bones/joints: There is no acute fracture or dislocation. No other significant acute bone or joint abnormality. Soft tissues: No visible/definite radiopaque soft tissue foreign body. No visible soft tissue gas. XR/XR tibia fibula RT 2V [id number] IMPRESSION: 1. No visible/definite radiopaque soft tissue foreign body. 2. No acute fracture or dislocation.
--- NOTE | 2020-08-20 21:20 | ED_ITS ---
HPI - Skin/Abscess/Foreign Bdy General: Chief complaint: Extremity Injury, Lower Stated complaint: r leg swelling Time Seen by Provider: 08/20/20 21:01 Source: patient Mode of arrival: ambulatory Limitations: no limitations History of Present Illness: HPI narrative: Patient is a 55-year-old female who presents to ED today with complaint of a wound to her right lateral lower leg. Patient tells me approximately 1.5 weeks ago while mowing she had a small rock strike her in the leg. She states eventually was she was able to remove the rock. She states over the past week she has scratched the area several times and has now noticed swelling and drainage. Patient states she is a diabetic and is concerned for infection. She has not noticed any fevers. No streaking up her leg. She reports the drainage is yellow in color. complaint: lesion Onset (ago): day(s) Tetanus up to date: yes Location: RLE Severity: moderate Pain Consistency: constant Relieving factors: none Exacerbating factors: none Context: other (trauma) Associated symptoms: Reports no associated symptoms; Deny chills or fever(s) Treatments prior to arrival: none Review of Systems Const: Denies: fever(s), chills, body aches, fatigue or malaise Musc: Reports: extremity pain (R LE) Skin/Breast: Reports: new lesions Neuro: Denies: numbness in extremities, sensory changes or difficulty walking PFS ED PFSH: Medical History (Updated 08/20/20 @ 22:08 by DOMONIQUE Cantu) Depression with anxiety Diabetes mellitus with hyperglycemia, with long-term current use of insulin HTN (hypertension) Hyperlipidemia No pertinent past medical history Denies: heart, lung, liver problems, thyroid problems, DVT/PE. PCP: Lakisha Ellis Surgical History H/O tubal ligation 1990- via umbilicus Family History Mother Colon cancer Diagnosed around age 60 Father CAD (coronary artery disease) Diabetes Heart disease Grandfather Diabetes maternal and paternal Grandmother Diabetes maternal and paternal Denies family history of Ovarian cancer Hyperlipidemia Breast cancer Hypertension Uterine cancer Thyroid condition Stroke Social History Smoking and tobacco status: never smoked Second hand smoke exposure: No Smoking risk assessment/counseling performed?: No Alcohol intake: never Desire information about alcohol rehabilitation?: No Counseling given: No Desire information about substance/drug rehabilitation?: No Counseling given: No Adopted: No Caregiver/support person: No Lives independently: Yes Household members: family Housing: House Marital status: Number of children: 2 service: No Current occupational status: unemployed Pets and animals: Yes History of recent travel: No Current gender identity: Female Female Reproductive History: Date of last menstrual period: 07/21/11 Physical Exam Const: COMMON NORMALS: no acute distress, patient oriented x3, no limitations and alert NUTRITIONAL APPEARANCE: obese ORIENTATION/CONSCIOUSNESS: Yes awake Resp: COMMON NORMALS: normal respiratory effort Cardio: COMMON NORMALS: regular rate and regular rhythm RATE: regular rate RHYTHM: regular rhythm Extremity: EXTREMITY IMAGE (FRONT): 1. quarter sized area of induration with central open wound with serosanguineous drainage; erythema localized to wound edges; she does have about 2 inches on all sides that is swollen and very tender but w/o induration, flucutance, or erythema; small amount of drainage was cultured Neuro: COMMON NORMALS: patient oriented x3, moves all extremities, no focal motor deficits and no sensory deficits noted SENSORIUM/ORIENTATION: Yes alert Skin: NARRATIVE SKIN EXAM: see extremity assessment for pertinent skin findings Course Vital Signs: Vital signs: Vital Signs Temperature 98.5 F 08/20/20 20:52 Pulse Rate 85 08/20/20 20:52 Respiratory Rate 16 08/20/20 20:52 Blood Pressure 154/82 08/20/20 20:52 Pulse Oximetry 95 08/20/20 20:52 MDM - Skin/Abscess/Foreign Bdy MDM Narrative: Medical decision making narrative: XR does not show any retained foreign body/rocks. Her vital signs are normal. She has a normal white count. Mildly elevated CRP at 11.3. Her glucose is over 500. Patient admittedly has not taken her insulin today. She has no complaints related to her hyperglycemia and states she does not want IV fluids or insulin here. She states she will go home and take her insulin. She has an appointment with PCP tomorrow that she can follow-up with for wound. Return to ED precautions given. Patient will be placed on Bactrim. Lab Data: Labs: Lab Results 08/20/20 08/20/20 Range/Units 21:26 21:26 WBC 7.8 (4.0-10.0) 10^3/ uL RBC 4.56 (4.1-5.3) 10^6/u L Hgb 13.2 (11.5-15.3) g/dL Hct 41.0 (37.0-47.0) % MCV 89.9 (81-99) fL MCH 28.9 (28.0-34.0) pg MCHC 32.2 (30.0-36.0) g/dL RDW 12.3 (12.1-15.1) % Plt Count 278 (130-400) 10^3/c mm MPV 11.0 H (7.4-10.4) fL Neut % (Auto) 63.7 % Lymph % (Auto) 27.1 % [place] % (Auto) 6.2 % Eos % (Auto) 2.4 % Baso % (Auto) 0.3 % Neut # (Auto) 4.97 (1.8-7.7) 10^3/u L Lymph # (Auto) 2.1 (0.8-4.8) 10^3/u L [place] # (Auto) 0.5 (0.2-0.9) 10^3/u L Eos # (Auto) 0.2 (0.0-0.8) 10^3/u L Baso # (Auto) 0.0 (0.0-0.1) 10^3/u L Nucleated RBC % (a uto) 0 % Nucleated RBCs # 0.0 /100WBC Sodium 136 (136-145) mmol/L Potassium 4.7 (3.5-5.1) mmol/L Chloride 99 (98-107) mmol/L Carbon Dioxide 27 (22-29) mmol/L Anion Gap 14.7 (5-19) BUN 8 (6-20) mg/dL Creatinine 0.8 (0.5-0.9) mg/dL GFR Calculation 74.5 L (90-130) mL/min Glucose 519 H* (65-115) mg/dL Calculated Osmolal ity 304 H (285-295) mOsm/k g Calcium 9.2 (8.5-10.5) mg/dL Total Bilirubin 0.2 (0.15-1.2) mg/dL AST 10 (0-32) U/L ALT 19 (0-33) U/L Alkaline Phosphata se 74 (35-105) IU/L C-Reactive Protein 11.3 H (0.0-4.9) mg/L Total Protein 6.6 (6.6-8.7) g/dL Albumin 4.0 (3.5-5.2) g/dL Globulin 2.6 (1.3-4.6) g/dL Imaging Data^: R tib/fib: My impression: no fbs noted Discharge Plan Discharge Patient Disposition: Home Clinical Impression: Wound of right lower extremity Qualifiers: Encounter type: initial encounter Qualified Code(s): S81.801A - Unspecified open wound, right lower leg, initial encounter Condition: Stable Prescriptions: New Bactrim DS 800-160 mg tablet 2 tab PO BID 7 Days Qty: 28 RF: 0 No Action aspirin 81 mg tablet,delayed release (DR/EC) 81 mg PO DAILY RF: 0 clobetasol 0.05 % cream 1 applic TOPICAL .three times weekly Qty: 30 RF: 0 nitroglycerin [Nitrostat] 0.4 mg tablet, sublingual 0.4 mg SUBLINGUAL Q5M PRN (Reason: chest pain) Qty: 25 RF: 0 (DME) FreeStyle Aylin 2 [place] Misc See Rx Instructions .ROUTE .MEDSUPPLY Qty: 1 RF: 0 (DME) FreeStyle Aylin 2 Sensor Kit See Rx Instructions .ROUTE .MEDSUPPLY Qty: 2 RF: 5 atorvastatin 80 mg tablet 80 mg PO BEDTIME Qty: 30 RF: 2 buspirone 10 mg tablet 10 mg PO BID Qty: 60 RF: 2 Jardiance 25 mg tablet 25 mg PO QAM Qty: 30 RF: 2 insulin aspart U-100 [Novolog Flexpen U-100 Insulin] 100 unit/mL (3 mL) insulin pen See Rx Instructions SUBCUT TID Qty: 15 RF: 2 Levemir FlexTouch U-100 Insuln 100 unit/mL (3 mL) insulin pen See Rx Instructions SUBCUT DAILY Qty: 30 RF: 2 Victoza 3-Graham 0.6 mg/0.1 mL (18 mg/3 mL) pen injector 1.8 mg SUBCUT Q24H Qty: 9 RF: 2 lisinopril 10 mg tablet 10 mg PO DAILY Qty: 30 RF: 2 metformin 500 mg tablet extended release 24 hr 2,000 mg PO DAILY Qty: 120 RF: 2 metoprolol tartrate 25 mg tablet 25 mg PO BID Qty: 60 RF: 2 trazodone 100 mg tablet 100 mg PO .at bedtime Qty: 30 RF: 2 venlafaxine 150 mg capsule,extended release 24hr 150 mg PO DAILY Qty: 30 RF: 2 chlorhexidine gluconate [Peridex] 0.12 % mouthwash 15 ml buccal BID Qty: 473 RF: 2 (DME) Embrace RYDER test strips Strip See Rx Instructions .ROUTE .MEDSUPPLY Qty: 100 RF: 5 (DME) lancets 33 gauge misc See Rx Instructions .ROUTE .MEDSUPPLY Qty: 100 RF: 5 (DME) blood-glucose meter [True Metrix Glucose Meter] Misc See Rx Instructions .ROUTE .MEDSUPPLY Qty: 1 RF: 0 (DME) OneTouch Ultra Blue Test Strip Strip See Rx Instructions .ROUTE .MEDSUPPLY Qty: 100 RF: 5 (DME) lancets [OneTouch Delica Lancets] 33 gauge misc See Rx Instructions .ROUTE .MEDSUPPLY Qty: 100 RF: 5 pen needle, diabetic [TechLITE Pen Needle] 31 gauge x 5/16 needle See Rx Instructions .ROUTE .COMPLEX Qty: 100 RF: 5 Discharge Orders: Discharge ED (Routine); Ordered 08/20/20 Ordered By: Tami Azar Referrals: Lakisha Ellis, ARCHITECTURAL COATING FINISHER-C [Primary Care Provider] - Activity Restrictions/Additional Instructions: Please monitor your wound for worsening symptoms such as worsening redness, swelling, increased drainage, red streaking, or fevers. If you have been on antibiotics for over 48 hours and continue to worsen you need to immediately return to the emergency department for re-evaluation. Coding Level of Care Code ED Assisted Living Administrator for [facility]
[2020-08-20 21:38] LABS: Basophils % 0.3 %; Eosinophils # 0.2 10^3/uL (0.0-0.8); Eosinophils % 2.4 %; Hemoglobin 13.2 g/dL (11.5-15.3); Lymphocytes # 2.1 10^3/uL (0.8-4.8); Lymphocytes % 27.1 %; Mean Corpuscular HGB Conc 32.2 g/dL (30.0-36.0); Mean Corpuscular Hemoglobin 28.9 pg (28.0-34.0); Mean Corpuscular Volume 89.9 fL (81-99); Monocytes # 0.5 10^3/uL (0.2-0.9); Monocytes % 6.2 %; Neutrophils # 4.97 10^3/uL (1.8-7.7); Neutrophils % 63.7 %; Nucleated Red Blood Cells % 0 %; Platelet Count 278 10^3/cmm (130-400); Red Blood Count 4.56 10^6/uL (4.1-5.3); Red Cell Distribution Width 12.3 % (12.1-15.1); White Blood Count 7.8 10^3/uL (4.0-10.0)
[2020-08-20 21:57] LABS: Alanine Aminotransferase 19 U/L (0-33); Alkaline Phosphatase 74 IU/L (35-105); Anion Gap 14.7 (5-19); Aspartate Amino Transferase 10 U/L (0-32); Blood Urea Nitrogen 8 mg/dL (6-20); C Reactive Protein 11.3 mg/L (0.0-4.9); Calcium 9.2 mg/dL (8.5-10.5); Carbon Dioxide 27 mmol/L (22-29); Chloride 99 mmol/L (98-107); Globulin 2.6 g/dL (1.3-4.6); Glomerular Filtration Rate 74.5 mL/min (90-130); Osmolality Calculated 304 mOsm/kg (285-295); Potassium 4.7 mmol/L (3.5-5.1); Sodium 136 mmol/L (136-145); Total Bilirubin 0.2 mg/dL (0.15-1.2); Total Protein 6.6 g/dL (6.6-8.7)
[2020-08-20 21:59] LABS: Glucose 519 mg/dL (65-115)
[2020-08-20] MEDS: sulfamethoxazole-trimeth DS 160-800 mg Tablet 1 TAB PO (22:12)
[2020-08-20 22:22] VITALS: BP 150/87; PULSE 81; RESP 16; O2SAT 98
== END 2020-08-20 22:23 | disposition home or self-care (01) ==
PROVIDERS: Emergency Provider Physician Assistant; PCP Nurse Practitioner
DX: S81.801A Unspecified open wound, right lower leg, initial encounter (principal); Z79.82 Long term (current) use of aspirin; Z79.4 Long term (current) use of insulin; I10 Essential (primary) hypertension; E78.5 Hyperlipidemia, unspecified; W20.8XXA Other cause of strike by thrown, projected or falling object, initial encounter; E11.9 Type 2 diabetes mellitus without complications
CPT/HCPCS: 73590; 80053; 85025; 86140; 87070; 87075; 87077; 87186; 87205; 99283

== ENCOUNTER → 2020-09-09 08:56 | Outpatient (BNVA) | payer MEDICAID, SELFPAY | PROVIDERS: PCP Nurse Practitioner; Visit Provider Nurse Practitioner | DX: E11.65 Type 2 diabetes mellitus with hyperglycemia (principal); Z79.4 Long term (current) use of insulin; F41.8 Other specified anxiety disorders; I10 Essential (primary) hypertension; E78.5 Hyperlipidemia, unspecified; K06.9 Disorder of gingiva and edentulous alveolar ridge, unspecified | CPT/HCPCS: 81000; 83036 ==

== ENCOUNTER → 2020-10-29 08:42 | Outpatient (BNVA) | payer MEDICAID, SELFPAY | PROVIDERS: PCP Nurse Practitioner; Visit Provider Nurse Practitioner | DX: J02.9 Acute pharyngitis, unspecified (principal); R50.9 Fever, unspecified; Z20.822 Contact with and (suspected) exposure to COVID-19; J02.0 Streptococcal pharyngitis | CPT/HCPCS: 87400; 87635; 87880 ==

== ENCOUNTER → 2020-12-05 08:03 | Outpatient (BNVA) | payer MEDICAID, SELFPAY | PROVIDERS: PCP Nurse Practitioner; Visit Provider Nurse Practitioner | DX: E11.65 Type 2 diabetes mellitus with hyperglycemia (principal); Z79.4 Long term (current) use of insulin; E78.5 Hyperlipidemia, unspecified; I10 Essential (primary) hypertension | CPT/HCPCS: 80053; 80061; 83036 ==

== ENCOUNTER → 2020-12-08 08:35 | Outpatient (BNVA) | payer MEDICAID, SELFPAY | PROVIDERS: PCP Nurse Practitioner; Visit Provider Nurse Practitioner | DX: E11.65 Type 2 diabetes mellitus with hyperglycemia (principal); F41.8 Other specified anxiety disorders; E78.5 Hyperlipidemia, unspecified; K06.9 Disorder of gingiva and edentulous alveolar ridge, unspecified; Z23 Encounter for immunization; Z79.4 Long term (current) use of insulin | CPT/HCPCS: 81000 ==

== ENCOUNTER → 2020-12-23 16:00 | Outpatient (BNVA) | payer MEDICAID, SELFPAY | PROVIDERS: PCP Nurse Practitioner; Visit Provider Nurse Practitioner | DX: Z20.822 Contact with and (suspected) exposure to COVID-19 (principal); B34.9 Viral infection, unspecified | CPT/HCPCS: 87426 ==

== ENCOUNTER → 2021-02-26 15:44 | Outpatient (BNVA) | payer MEDICAID, SELFPAY | PROVIDERS: PCP Nurse Practitioner; Visit Provider Nurse Practitioner Family | DX: Z20.822 Contact with and (suspected) exposure to COVID-19 (principal) | CPT/HCPCS: 87635 ==

== ENCOUNTER → 2021-03-13 08:03 | Outpatient (BNVA) | payer BC, MEDICAID, SELFPAY | PROVIDERS: PCP Nurse Practitioner; Visit Provider Nurse Practitioner | DX: E11.65 Type 2 diabetes mellitus with hyperglycemia (principal); Z79.4 Long term (current) use of insulin; I10 Essential (primary) hypertension | CPT/HCPCS: 80053; 80061; 83036 ==

== ENCOUNTER → 2021-03-16 09:06 | Outpatient (BNVA) | payer BC, MEDICAID, SELFPAY | PROVIDERS: PCP Nurse Practitioner; Visit Provider Nurse Practitioner | DX: E78.5 Hyperlipidemia, unspecified (principal); F41.8 Other specified anxiety disorders; K06.9 Disorder of gingiva and edentulous alveolar ridge, unspecified; E11.65 Type 2 diabetes mellitus with hyperglycemia; Z79.4 Long term (current) use of insulin; I10 Essential (primary) hypertension; B35.1 Tinea unguium | CPT/HCPCS: 81000 ==

== ENCOUNTER → 2021-06-08 08:25 | Outpatient (BNVA) | payer BC, MEDICAID, SELFPAY | PROVIDERS: PCP Nurse Practitioner; Visit Provider Nurse Practitioner | DX: E11.65 Type 2 diabetes mellitus with hyperglycemia (principal); Z79.4 Long term (current) use of insulin; I10 Essential (primary) hypertension | CPT/HCPCS: 80053; 80061; 83036 ==

== ENCOUNTER → 2021-06-10 08:59 | Outpatient (BNVA) | payer BC, MEDICAID, SELFPAY | PROVIDERS: PCP Nurse Practitioner; Visit Provider Nurse Practitioner | DX: E78.5 Hyperlipidemia, unspecified (principal); F41.8 Other specified anxiety disorders; K06.9 Disorder of gingiva and edentulous alveolar ridge, unspecified; E11.65 Type 2 diabetes mellitus with hyperglycemia; Z79.4 Long term (current) use of insulin; I10 Essential (primary) hypertension; L30.9 Dermatitis, unspecified; S81.801A Unspecified open wound, right lower leg, initial encounter; X58.XXXA Exposure to other specified factors, initial encounter | CPT/HCPCS: 81000 ==

== ENCOUNTER → 2021-08-07 16:13 | Outpatient (BNVA) | payer BC, MEDICAID, SELFPAY | PROVIDERS: PCP Nurse Practitioner; Visit Provider Registered Nurse Neonatal Intensive Care | DX: J02.9 Acute pharyngitis, unspecified (principal); H66.002 Acute suppurative otitis media without spontaneous rupture of ear drum, left ear | CPT/HCPCS: 87880 ==

== ENCOUNTER → 2021-08-12 15:51 | Outpatient (BNVA) | payer BC, MEDICAID, SELFPAY | PROVIDERS: PCP Nurse Practitioner; Visit Provider Nurse Practitioner Family | DX: J02.9 Acute pharyngitis, unspecified (principal); Z20.822 Contact with and (suspected) exposure to COVID-19; B34.9 Viral infection, unspecified | CPT/HCPCS: 87071; 87635; 87880 ==

== ENCOUNTER → 2021-08-28 08:06 | Outpatient (BNVA) | payer BC, MEDICAID, SELFPAY | PROVIDERS: PCP Nurse Practitioner; Visit Provider Nurse Practitioner | DX: E78.5 Hyperlipidemia, unspecified (principal); F41.8 Other specified anxiety disorders; Z79.4 Long term (current) use of insulin; I10 Essential (primary) hypertension; E11.65 Type 2 diabetes mellitus with hyperglycemia; K06.9 Disorder of gingiva and edentulous alveolar ridge, unspecified | CPT/HCPCS: 80053; 80061; 83036 ==

== ENCOUNTER → 2021-08-31 09:04 | Outpatient (BNVA) | payer BC, MEDICAID, SELFPAY | PROVIDERS: PCP Nurse Practitioner; Visit Provider Nurse Practitioner | DX: E78.5 Hyperlipidemia, unspecified (principal); F41.8 Other specified anxiety disorders; Z79.4 Long term (current) use of insulin; I10 Essential (primary) hypertension; K06.9 Disorder of gingiva and edentulous alveolar ridge, unspecified; E11.65 Type 2 diabetes mellitus with hyperglycemia; L30.9 Dermatitis, unspecified | CPT/HCPCS: 81000 ==

== ENCOUNTER → 2021-11-27 08:01 | Outpatient (BNVA) | payer BC, MEDICAID, SELFPAY | PROVIDERS: PCP Nurse Practitioner; Visit Provider Nurse Practitioner | DX: E11.65 Type 2 diabetes mellitus with hyperglycemia (principal); Z79.4 Long term (current) use of insulin | CPT/HCPCS: 80053; 80061; 83036 ==

== ENCOUNTER → 2021-11-30 09:34 | Outpatient (BNVA) | payer BC, MEDICAID, SELFPAY | PROVIDERS: PCP Nurse Practitioner; Visit Provider Nurse Practitioner | DX: E11.65 Type 2 diabetes mellitus with hyperglycemia (principal); Z79.4 Long term (current) use of insulin; E78.5 Hyperlipidemia, unspecified; F41.8 Other specified anxiety disorders; K06.9 Disorder of gingiva and edentulous alveolar ridge, unspecified; I10 Essential (primary) hypertension | CPT/HCPCS: 81000 ==

== ENCOUNTER → 2022-02-11 16:28 | Outpatient (BNVA) | payer BC, MEDICAID, SELFPAY | PROVIDERS: PCP Nurse Practitioner; Visit Provider Nurse Practitioner Family | DX: J02.9 Acute pharyngitis, unspecified (principal); R50.9 Fever, unspecified; J02.0 Streptococcal pharyngitis | CPT/HCPCS: 87400; 87880 ==

== ENCOUNTER 2022-04-27 14:08 | Emergency (ER) | payer BC, MEDICAID, SELFPAY ==
[2022-04-27] VITALS (20 sets, daily range): BP systolic 127–162; BP diastolic 70–89; PULSE 85–86; RESP 16–18; TEMP 36.6–37.1; O2SAT 94–99
--- NOTE | 2022-04-27 15:31 | XRR_ITS ---
PROCEDURE INFORMATION: Exam: XR Chest Exam date and time: 04/27/2022 3:39 PM Age: 56 years old Clinical indication: Pain; Cough; On breathing; Additional info: Chest pain cough TECHNIQUE: Imaging protocol: Radiologic exam of the chest. Views: 1 view. COMPARISON: CR XR chest 1V portable [id number] 02/28/2019 7:00 PM FINDINGS: Lungs: Unremarkable. No consolidation. Pleural spaces: Unremarkable. No pleural effusion. No pneumothorax. Heart/Mediastinum: Unremarkable. No cardiomegaly. Bones/joints: Unremarkable. XR/XR chest 1V portable [id number] IMPRESSION: No acute findings.
--- NOTE | 2022-04-27 15:34 | W.ED.URI ---
HPI - URI/Sore Throat General: Chief Complaint: Upper Respiratory Infection Stated Complaint: chest pain, cough, sob Time Seen by Provider: 04/27/22 15:15 History of Present Illness: Patient presents to the ER with complaints of cough headache wheezing shortness of breath and right-sided chest pain worse when she coughs. Patient states has been going on for approximately a week but she did have an episode where she thought she was getting better but now she is getting worse. Patient voices became hoarse with so much coughing. Patient says she gets strep throat very often. Patient also admits to being an uncontrolled diabetic. MD elicited complaint: cough Pertinent past history: other (Frequent strep throat) Onset (ago): week(s) (1) Consistency: intermittent and progressively worsening Severity: moderate Able to tolerate fluids by mouth: Yes Exacerbating factors: deep breaths (Coughing) Relieving factors: nothing Associated symptoms: Reports change in voice, chest pain, cough and headache(s); Deny abdominal pain, chills, diarrhea, fever(s), nausea or vomiting Review of Systems General: Reports: 10 or more systems reviewed and unremarkable except in HPI and below Const: Denies: fever(s), chills or body aches Eyes: Denies: change in vision ENMT: Reports: hoarseness; Denies: throat pain or odynophagia Card: Reports: chest pain; Denies: palpitations, irregular heart rhythm or edema Resp: Reports: dyspnea and non-productive cough GI: Denies: abdominal pain, nausea, vomiting or diarrhea : Denies: flank pain, difficulty voiding or dysuria Musc: Denies: neck pain, back pain or extremity pain Skin/Breast: Denies: rash, pruritus or erythema Neuro: Reports: headache(s); Denies: numbness in extremities or weakness in extremities Psych: Denies: anxiety, depression or mood swings Endo: Denies: polyuria or polydipsia Adrián/Lymph: Denies: easy bruising or easy bleeding All/Imm: Denies: urticaria, throat swelling or tongue swelling PFSH ED PFSH: Medical History Depression with anxiety Diabetes mellitus with hyperglycemia, with long-term current use of insulin HTN (hypertension) Hyperlipidemia No pertinent past medical history Denies: heart, lung, liver problems, thyroid problems, DVT/PE. PCP: Lakisha Ellis Surgical History H/O tubal ligation 1990- via umbilicus Family History Mother Colon cancer Diagnosed around age 60 Father CAD (coronary artery disease) Diabetes Heart disease Grandfather Diabetes maternal and paternal Grandmother Diabetes maternal and paternal Denies family history of Ovarian cancer Hyperlipidemia Breast cancer Hypertension Uterine cancer Thyroid condition Stroke Social History Smoking and tobacco status: never smoked Second hand smoke exposure: No Smoking risk assessment/counseling performed?: No Alcohol intake: never Desire information about alcohol rehabilitation?: No Counseling given: No Desire information about substance/drug rehabilitation?: No Counseling given: No Adopted: No Caregiver/support person: No Lives independently: Yes Household members: family Housing: House Marital status: Number of children: 2 service: No Current occupational status: unemployed Pets and animals: Yes Current gender identity: Female Physical Exam Const: COMMON NORMALS: no acute distress, average body habitus, patient oriented x3, no limitations, healthy appearing, alert and well nourished HENMT: COMMON NORMALS: normocephalic, atraumatic, hearing grossly normal bilaterally, external ears normal, EAC's normal, TM's normal bilaterally and moist oral mucous membranes HEAD & SCALP: normocephalic and atraumatic EXTERNAL EAR: Yes external ears normal EXTERNAL AUDITORY CANAL: EAC's normal TYMPANIC MEMBRANE: TM's normal bilaterally Eye: COMMON NORMALS: Equal, round and reactive pupils present, EOMs intact bilaterally and conjunctivae normal CONJUNCTIVA: Yes conjunctivae normal PUPIL: Yes Equal, round and reactive pupils present Neck/C-Spine: COMMON NORMALS: full ROM, no lymphadenopathy, supple, no JVD and Thyroid normal THYROID: Thyroid normal Lymph: LYMPHATIC: no lymphadenopathy noted Chest: COMMONS NORMALS: normal inspection of the chest CHEST: Yes localized rib tenderness with anteroposterior compression (Tender with palpation over right side) Resp: COMMON NORMALS: normal respiratory effort, No retractions, No use of accessory muscles and clear to auscultation bilaterally AUSCULTATION: clear to auscultation bilaterally OTHER: Dry cough Cardio: COMMON NORMALS: no JVD, regular rate, regular rhythm, S1 normal heart sound present, S2 normal heart sound present and No gallops present (Cardio) RATE: regular rate RHYTHM: regular rhythm HEART SOUNDS: S1 normal heart sound present and S2 normal heart sound present GI: COMMON NORMALS: Normal to inspection, nondistended, normoactive bowel sounds present, Soft to palpation, non-tender, No hepatosplenomegaly present and no masses PALPATION: Yes Soft to palpation and Yes No hepatosplenomegaly present : COMMON NORMALS: Yes no CVA tenderness BLADDER/KIDNEY EXAM: Yes no CVA tenderness Back/Pelvis: COMMON NORMALS: no CVA tenderness Extremity: COMMON NORMALS: normal to inspection Neuro: COMMON NORMALS: patient oriented x3, CN's II-XII intact bilaterally, moves all extremities, no focal motor deficits and no sensory deficits noted SENSORIUM/ORIENTATION: Yes alert Psych: COMMON NORMALS: mental status grossly normal, Normal thought process present, cooperative, normal affect and speech normal SPEECH: Yes normal speech THOUGHT PROCESS: Normal thought process present Course Vital Signs: Vital signs: Vital Signs Temperature 98.7 F 04/27/22 19:59 Pulse Rate 86 04/27/22 19:59 Respiratory Rate 16 04/27/22 19:59 Blood Pressure 136/70 04/27/22 19:59 Pulse Oximetry 95 04/27/22 19:59 Oxygen Delivery Me thod 04/27/22 19:23 MDM - URI/Sore Throat Medical Decision Making Patient presents to the ER with nasal congestion cough sore throat with intermittent chest tightness over the last 1 week. Patient also states she is diabetic and her sugars are very poorly controlled. Upon further history and physical taking from the patient as well as review of labs include CBC CMP serial troponins with a 0 delta and respiratory panel that is negative it is decided patient probably has a viral upper respiratory infection and chest wall pain from this. This was discussed with the patient and patient is agreeable and comfortable with going home. Patient should follow-up with her primary care physician within 1 week or return to the ER if symptoms worsen or change. Differential Diagnosis Likely upper respiratory infection, otitis media and pharyngitis Lab Data 04/27/22 15:59 04/27/22 15:59 Radiology Impressions Chest X-Ray 04/27/22 15:31 IMPRESSION: No acute findings. Laboratory Results WBC 9.6 10^3/uL (4.0-10.0) 04/27/22 15:59 RBC 5.18 10^6/uL (4.1-5.3) 04/27/22 15:59 Hgb 14.7 g/dL (11.5-15.3) 04/27/22 15:59 Hct 45.8 % (37.0-47.0) 04/27/22 15:59 MCV 88.4 fl (81-99) 04/27/22 15:59 MCH 28.4 pg (28.0-34.0) 04/27/22 15:59 MCHC 32.1 g/dL (30.0-36.0) 04/27/22 15:59 RDW 12.5 % (12.1-15.1) 04/27/22 15:59 Plt Count 345 10^3/cmm (130-400) 04/27/22 15:59 MPV 10.9 fL (7.4-10.4) H 04/27/22 15:59 Neut % (Auto) 57.7 % 04/27/22 15:59 Lymph % (Auto) 32.8 % 04/27/22 15:59 Gray % (Auto) 5.8 % 04/27/22 15:59 Eos % (Auto) 2.9 % 04/27/22 15:59 Baso % (Auto) 0.4 % 04/27/22 15:59 Neut # (Auto) 5.52 10^3/uL (1.8-7.7) 04/27/22 15:59 Lymph # (Auto) 3.2 10^3/uL (0.8-4.8) 04/27/22 15:59 Gray # (Auto) 0.6 10^3/uL (0.2-0.9) 04/27/22 15:59 Eos # (Auto) 0.3 10^3/uL (0.0-0.8) 04/27/22 15:59 Baso # (Auto) 0.0 10^3/uL (0.0-0.1) 04/27/22 15:59 Nucleated RBC % (auto) 0 % 04/27/22 15:59 Nucleated RBCs # 0.0 /100WBC 04/27/22 15:59 Sodium 137 mmol/L (136-145) 04/27/22 15:59 Potassium 4.5 mmol/L (3.5-5.1) 04/27/22 15:59 Chloride 95 mmol/L (98-107) L 04/27/22 15:59 Carbon Dioxide 30 mmol/L (22-29) H 04/27/22 15:59 Anion Gap 16.5 (5-19) 04/27/22 15:59 BUN 15 mg/dL (6-20) 04/27/22 15:59 Creatinine 0.8 mg/dL (0.5-0.9) 04/27/22 15:59 GFR Calculation 74.2 mL/min (90-130) L 04/27/22 15:59 Glucose 253 mg/dL (65-115) H 04/27/22 15:59 Calculated Osmolality 293 mOsm/kg (285-295) 04/27/22 15:59 Calcium 10.0 mg/dL (8.5-10.5) 04/27/22 15:59 Total Bilirubin 0.4 mg/dL (0.15-1.2) 04/27/22 15:59 AST 9 U/L (0-32) 04/27/22 15:59 ALT 18 U/L (0-33) 04/27/22 15:59 Alkaline Phosphatase 87 U/L (35-105) 04/27/22 15:59 Troponin T Baseline 6 ng/L (0-10) 04/27/22 15:59 Troponin T 120 Minute 6.00 ng/L (0-10) 04/27/22 18:17 Delta Troponin T 0 ABS# (0-10) 04/27/22 18:17 Total Protein 7.9 g/dL (6.6-8.7) 04/27/22 15:59 Albumin 4.6 g/dL (3.5-5.2) 04/27/22 15:59 Globulin 3.3 g/dL (1.3-4.6) 04/27/22 15:59 Nasal Influ A H1 2008 PCR Not detected (NOT DETECT) 04/27/22 16:20 Adenovirus (PCR) Not detected (NOT DETECT) 04/27/22 16:20 C. pneumoniae DNA (PCR) Not detected (NOT DETECT) 04/27/22 16:20 Coronavirus 229E (PCR) Not detected (NOT DETECT) 04/27/22 16:20 Human Metapneumovir PCR Not detected (NOT DETECT) 04/27/22 16:20 Influenza A (H1) PCR Not detected (NOT DETECT) 04/27/22 16:20 Influenza A (H3) PCR Not detected (NOT DETECT) 04/27/22 16:20 Influenza Type A (PCR) Not detected (NOT DETECT) 04/27/22 16:20 Influenza Type B (PCR) Not detected (NOT DETECT) 04/27/22 16:20 M. pneumoniae (PCR) Not detected (NOT DETECT) 04/27/22 16:20 Parainfluenza 1 (PCR) Not detected (NOT DETECT) 04/27/22 16:20 Parainfluenza 2 (PCR) Not detected (NOT DETECT) 04/27/22 16:20 Parainfluenza 3 (PCR) Not detected (NOT DETECT) 04/27/22 16:20 Parainfluenza 4 (PCR) Not detected (NOT DETECT) 04/27/22 16:20 RSV Type A (PCR) Not detected (NOT DETECT) 04/27/22 16:20 RSV Type B (PCR) Not detected (NOT DETECT) 04/27/22 16:20 Entero/Rhino (PCR) Not detected (NOT DETECT) 04/27/22 16:20 SARS-CoV-2 (PCR) Not detected (NOT DETECT) 04/27/22 16:20 Group A Strep Rapid Negative (Negative) 04/27/22 16:20 EKG Data EKG 1: I personally reviewed and interpreted this EKG as follows: EKG interpretation date: 04/27/22 Prior EKG tracings: not available for review Interpretation: EKG shows normal sinus rhythm with a ventricular rate of 79 bpm, NH interval 181, QRS duration of 81, QTc of 403, no ST-T wave changes. Discharge Plan Discharge Patient Disposition: Home Clinical Impression: Chest wall pain Upper respiratory infection Qualifiers: URI type: unspecified viral URI Qualified Code(s): J06.9 - Acute upper respiratory infection, unspecified Condition: Stable Prescriptions: No Action aspirin 81 mg tablet,delayed release (DR/EC) 81 mg PO DAILY clobetasol 0.05 % cream 1 applic TOPICAL .three times weekly Qty: 30 0RF nitroglycerin [Nitrostat] 0.4 mg tablet, sublingual 0.4 mg SUBLINGUAL Q5M PRN (Reason: chest pain) Qty: 25 0RF Rx Instructions: until response; do not exceed 3 doses per episode pen needle, diabetic [TechLITE Pen Needle] 31 gauge x 5/16 needle See Rx Instructions .ROUTE .COMPLEX Qty: 100 5RF Dose Instruction: USE DIRECTED FOR insulin Rx Instructions: USE DIRECTED FOR insulin (DME) FreeStyle Aylin 2 Sensor Kit See Rx Instructions .ROUTE .MEDSUPPLY Qty: 2 5RF Rx Instructions: change every 14 days nystatin-triamcinolone 100,000-0.1 unit/g-% cream 1 applic topical BID Qty: 30 0RF Rx Instructions: apply arms MediHoney (honey) 100 % paste 1 applic topical BID Qty: 103 0RF atorvastatin 80 mg tablet 80 mg PO BEDTIME Qty: 90 0RF buspirone 10 mg tablet 10 mg PO BID Qty: 180 0RF chlorhexidine gluconate [Peridex] 0.12 % mouthwash 15 ml buccal BID Qty: 1500 0RF Jardiance 25 mg tablet 25 mg PO QAM Qty: 90 0RF Levemir FlexTouch U-100 Insuln 100 unit/mL (3 mL) insulin pen See Rx Instructions SUBCUT DAILY Qty: 90 0RF Rx Instructions: up to 100 units SUBCUT daily; Victoza 3-Graham 0.6 mg/0.1 mL (18 mg/3 mL) pen injector 1.8 mg SUBCUT Q24H Qty: 21 0RF lisinopril 10 mg tablet 10 mg PO DAILY Qty: 90 0RF metformin 500 mg tablet extended release 24 hr 2,000 mg PO DAILY Qty: 360 0RF metoprolol tartrate 25 mg tablet 25 mg PO BID Qty: 180 0RF trazodone 100 mg tablet 100 mg PO .at bedtime Qty: 90 0RF venlafaxine 150 mg capsule,extended release 24hr 150 mg PO DAILY Qty: 90 0RF venlafaxine [Effexor XR] 75 mg capsule,extended release 24hr 75 mg PO QAM Qty: 90 0RF Rx Instructions: take AM and 150mg PM clotrimazole-betamethasone 1-0.05 % cream 1 applic topical BID 28 Days Qty: 45 3RF Hold Instructions: Home Medication placed on hold at Doctor's office Rx Instructions: Apply small amount to affected area twice daily (DME) Dexcom G5 Senior [employer] 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 Engineer Misc See Rx Instructions .Route Qty: 1 0RF Rx Instructions: As directed (DME) Dexcom G5-G4 Sensor Device See Rx Instructions .Route Qty: 4 5RF Rx Instructions: As directed naftifine 2 % cream 1 applic topical DAILY 14 Days Qty: 60 0RF Rx Instructions: Apply to affected areas once daily terbinafine HCl 250 mg tablet 250 mg PO DAILY Qty: 14 0RF Rx Instructions: Take one tablet by mouth once daily for 14 days amoxicillin-pot clavulanate 875-125 mg tablet 1 tab PO BID 10 Days Qty: 20 0RF insulin aspart U-100 [Novolog FlexPen U-100 Insulin] 100 unit/mL (3 mL) insulin pen See Rx Instructions SUBCUT TID Qty: 45 0RF Rx Instructions: 110-129=3U,130-146=[id number]= 12 units 251-300=15 units 301-350=18 units 351-400=21 units >400=24 units SUBCUT three times daily; triamcinolone acetonide 0.1 % cream See Rx Instructions .ROUTE .COMPLEX Qty: 80 0RF Dose Instruction: APPLY TO AFFECTED AREA TWICE A DAY Rx Instructions: APPLY TO AFFECTED AREA TWICE A DAY (DME) OneTouch Ultra Test Strip See Rx Instructions .Route Qty: 100 2RF Rx Instructions: As directed Discharge Orders: Discharge ED (Routine); Ordered 04/27/22 Ordered By: Miguel Aquino Referrals: Lakisha Ellis, TECHNICAL MARKETING ENGINEER-C [Primary Care Provider] - 1 week Discharge Activity: Resume usual activity Patient Instructions: Upper Respiratory Infection (ED), Acute Bronchitis (ED) Stand Alone Forms: Work/School Release Coding Level of Care Code ED Framing Manager for Gema Dukes
--- NOTE | 2022-04-27 15:36 | ECG_ITS ---
[facility] Test Date: 2022-04-27 Pat Name: Kriss Garcia Department: Room: Gender: Female Web Analyst: : 1965 Requested By: Miguel Aquino Order Number: [id number] Reading MD: WANDA VELOZ Measurements Intervals [place] Rate: 79 P: 46 NV: 181 QRS: 18 QRSD: 81 T: 40 QT: 369 QTc: 424 Interpretive Statements SINUS RHYTHM Compared to ECG 03/01/2019 00:03:43 No significant changes Electronically Signed On 04-27-2022 17:34:03 CDT by WANDA VELOZ [id number]
[2022-04-27 16:12] LABS: Basophils % 0.4 %; Eosinophils # 0.3 10^3/uL (0.0-0.8); Eosinophils % 2.9 %; Hematocrit 45.8 % (37.0-47.0); Hemoglobin 14.7 g/dL (11.5-15.3); Lymphocytes # 3.2 10^3/uL (0.8-4.8); Lymphocytes % 32.8 %; Mean Corpuscular HGB Conc 32.1 g/dL (30.0-36.0); Mean Corpuscular Hemoglobin 28.4 pg (28.0-34.0); Mean Corpuscular Volume 88.4 fl (81-99); Mean Platelet Volume 10.9 fL (7.4-10.4); Monocytes # 0.6 10^3/uL (0.2-0.9); Monocytes % 5.8 %; Neutrophils # 5.52 10^3/uL (1.8-7.7); Neutrophils % 57.7 %; Nucleated Red Blood Cells % 0 %; Platelet Count 345 10^3/cmm (130-400); Red Blood Count 5.18 10^6/uL (4.1-5.3); Red Cell Distribution Width 12.5 % (12.1-15.1); White Blood Count 9.6 10^3/uL (4.0-10.0)
[2022-04-27 16:29] LABS: Alanine Aminotransferase 18 U/L (0-33); Albumin Level 4.6 g/dL (3.5-5.2); Alkaline Phosphatase 87 U/L (35-105); Anion Gap 16.5 (5-19); Aspartate Amino Transferase 9 U/L (0-32); Blood Urea Nitrogen 15 mg/dL (6-20); Carbon Dioxide 30 mmol/L (22-29); Chloride 95 mmol/L (98-107); Globulin 3.3 g/dL (1.3-4.6); Glomerular Filtration Rate 74.2 mL/min (90-130); Glucose 253 mg/dL (65-115); Osmolality Calculated 293 mOsm/kg (285-295); Potassium 4.5 mmol/L (3.5-5.1); Sodium 137 mmol/L (136-145); Total Bilirubin 0.4 mg/dL (0.15-1.2); Total Protein 7.9 g/dL (6.6-8.7)
[2022-04-27 16:31] LABS: Troponin(5th) Baseline 6 ng/L (0-10)
[2022-04-27 16:45] LABS: Rapid Strep A Test Negative (Negative)
[2022-04-27 18:14] LABS: Adenovirus Not Detected (NOT DETECT); Chlamydia Pneumoniae Not Detected (NOT DETECT); Coronavirus 229E,HKU1,NL63,OC4 Not Detected (NOT DETECT); Human Metapneumovirus Not Detected (NOT DETECT); Human Rhinovirus/Enterovirus Not Detected (NOT DETECT); Influenza A Not Detected (NOT DETECT); Influenza A H1 Not Detected (NOT DETECT); Influenza A H1-2009 Not Detected (NOT DETECT); Influenza A H3 Not Detected (NOT DETECT); Influenza B Not Detected (NOT DETECT); Mycoplasma Pneumoniae Not Detected (NOT DETECT); Parainfluenza Virus Type 1 Not Detected (NOT DETECT); Parainfluenza Virus Type 2 Not Detected (NOT DETECT); Parainfluenza Virus Type 3 Not Detected (NOT DETECT); Parainfluenza Virus Type 4 Not Detected (NOT DETECT); Respiratory Syncytial Virus A Not Detected (NOT DETECT); Respiratory Syncytial Virus B Not Detected (NOT DETECT); SARS-COV-2 Not Detected (NOT DETECT)
[2022-04-27 19:12] LABS: Troponin 5 2HR Delta 0 ABS# (0-10)
== END 2022-04-27 20:03 | disposition home or self-care (01) ==
PROVIDERS: Emergency Provider Emergency Medicine; PCP Nurse Practitioner
DX: J06.9 Acute upper respiratory infection, unspecified (principal); R07.89 Other chest pain; Z20.822 Contact with and (suspected) exposure to COVID-19; Z79.82 Long term (current) use of aspirin; Z79.4 Long term (current) use of insulin; Z79.84 Long term (current) use of oral hypoglycemic drugs; E11.9 Type 2 diabetes mellitus without complications; I10 Essential (primary) hypertension; E78.5 Hyperlipidemia, unspecified
CPT/HCPCS: 36415; 71045; 80053; 84484; 85025; 87081; 87486; 87581; 87633; 87880; 93005; 99285

== ENCOUNTER 2022-05-11 06:32 | Outpatient (CLI) | payer BC, MEDICAID, SELFPAY ==
[2022-05-11 07:07] LABS: Estmated Average Glucose 252; Hemoglobin A1C 10.4 % (4.0-6.0)
[2022-05-11 07:13] LABS: Alanine Aminotransferase 21 U/L (0-33); Albumin Level 3.9 g/dL (3.5-5.2); Alkaline Phosphatase 58 U/L (35-105); Anion Gap 14.6 (5-19); Aspartate Amino Transferase 15 U/L (0-32); Blood Urea Nitrogen 12 mg/dL (6-20); Carbon Dioxide 29 mmol/L (22-29); Chloride 99 mmol/L (98-107); Chol HDL Ratio 5.13 mg/dL (0.0-4.40); Cholesterol 195 mg/dL (0-200); Globulin 2.8 g/dL (1.3-4.6); Glomerular Filtration Rate 86.2 mL/min (90-130); Glucose 294 mg/dL (65-115); HDL Cholesterol 38 mg/dL (60-100); LDL Cholesterol Calculated 103 mg/dL (50-129); LDL HDL Ratio 2.71 RATIO (0.00-3.22); Osmolality Calculated 297 mOsm/kg (285-295); Potassium 4.6 mmol/L (3.5-5.1); Sodium 138 mmol/L (136-145); Total Bilirubin 0.3 mg/dL (0.15-1.2); Total Protein 6.7 g/dL (6.6-8.7); Triglycerides 269 mg/dL (0-150)
[2022-05-11 07:14] LABS: Creatinine Urine, Random 119 mg/dL (28-217); Microalbum Creatinine Ratio Ur 8 mg/dL (0-20); Microalbumin Random Urine 1 ug/dL (0-20)
== END 2022-05-11 06:33 | disposition home or self-care (01) ==
LOC: LAB 06:35
PROVIDERS: PCP Nurse Practitioner; Visit Provider Internal Medicine
DX: E78.5 Hyperlipidemia, unspecified (principal)
CPT/HCPCS: 36415; 80053; 80061; 82044; 83036

== ENCOUNTER 2022-07-14 08:58 | Outpatient (CLI) | payer BC, MEDICAID, SELFPAY ==
[2022-07-14] MEDS: iohexol 350 mg/mL 500 mL Btl (per mL) PO (10:26)
--- NOTE | 2022-07-14 10:30 | CT_ITS ---
WS: [id number] CT ABDOMEN AND PELVIS NONCONTRAST HISTORY: R10.10 - Upper abdominal pain, unspecified TECHNIQUE: Imaging performed through the abdomen and pelvis. Coronal and sagittal reformats are submi tted. All CT scans at [facility] use at least one of these dose optimization techniques: auto mated exposure control; mA and/or kV adjustment per patient size (includes targeted exams where dose is matched to clinical indication); or iterative reconstruction. DLP: 773.30 mGy.cm COMPARISON: 12/07/2015 Lower thorax: Lung bases are clear. Visualized heart is normal. No hiatal hernia. Liver: Mildly enlarged liver with mild hepatic steatosis. No bile duct dilatation is evident. Gallbladder: Normal gallbladder. No pericholecystic fluid or cholelithiasis. No gallbladder wall thic kening. Pancreas: Normal size and attenuation. Normal pancreatic duct. No pancreatitis or mass. Spleen: Normal. Adrenal glands: Normal. No mass. Right kidney: Normal size kidney with no mass or hydronephrosis. Left kidney: Very minimal perinephric stranding around the superior pole. No obstruction. Aorta: Normal abdominal aorta, no aneurysm or atherosclerosis. No free fluid, intraperitoneal air or significant lymphadenopathy. GI tract: Normal stomach, small bowel and colon. No obstruction or wall thickening. Normal appendix. Abdominal wall: No hernia. Mild soft tissue thickening in the intra-abdominal wall are probably injec tion sites. These have slightly progressed since 2016. Pelvis: No free fluid or adenopathy. Normal uterus and adnexa. Normal bladder. Osseous structures: Unremarkable. CT/CT abdomen pelvis wo con [id number] IMPRESSION: 1. No acute abdominal or pelvic abnormalities are identified. 2. No ascites or adenopathy. 3. Mild hepatic steatosis and hepatomegaly. 4. No renal obstruction.
== END 2022-07-14 08:59 | disposition home or self-care (01) ==
LOC: RAD 09:02
PROVIDERS: PCP Nurse Practitioner; Visit Provider Nurse Practitioner
DX: R10.10 Upper abdominal pain, unspecified (principal); K76.0 Fatty (change of) liver, not elsewhere classified
CPT/HCPCS: 74176; Q9967

== ENCOUNTER 2022-12-17 06:30 | Outpatient (CLI) | payer BC, MEDICAID, SELFPAY ==
[2022-12-17 07:15] LABS: Add Urine Microscopic? NO; Charge for UA Resulting for Rev
[2022-12-17 07:26] LABS: Basophils % 0.5 %; Eosinophils # 0.3 10^3/uL (0.0-0.8); Eosinophils % 5.1 %; Lymphocytes # 1.6 10^3/uL (0.8-4.8); Lymphocytes % 24.8 %; Mean Corpuscular HGB Conc 31.4 g/dL (30-55); Mean Corpuscular Hemoglobin 28.9 pg (27-33); Mean Corpuscular Volume 92.1 fl (85-98); Mean Platelet Volume 10.4 fL (7.4-10.4); Monocytes # 0.3 10^3/uL (0.2-0.9); Monocytes % 5.4 %; Neutrophils # 4.04 10^3/uL (1.8-7.7); Neutrophils % 63.9 %; Nucleated Red Blood Cells % 0 %; Platelet Count 336 10^3/cmm (157-399); Red Blood Count 4.67 10^6/uL (3.85-5.65); Red Cell Distribution Width 12.5 % (12.1-15.1); White Blood Count 6.32 10^3/uL (3.29-11.43)
[2022-12-17 07:32] LABS: Protein Urine Neg (Negative); Urine Appearance Clear (CLEAR); Urine Color Straw (Yellow); pH Urine 5 (5-7)
[2022-12-17 07:33] LABS: Bilirubin Urine Neg (Negative); Blood Urine Neg (Negative); Glucose Urine UA 4+ (Normal); Ketones Urine Negative (Negative); Leukocyte Esterase Urine Negative (Negative); Nitrate Urine Negative (Negative); Urobilinogen Urine Neg (Negative)
[2022-12-17 07:39] LABS: Alanine Aminotransferase 28 U/L (0-33); Albumin Level 4.3 g/dL (3.5-5.2); Alkaline Phosphatase 67 U/L (35-105); Aspartate Amino Transferase 16 U/L (0-32); Blood Urea Nitrogen 11 mg/dL (6-20); Calcium 9.6 mg/dL (8.5-10.5); Carbon Dioxide 29 mmol/L (22-29); Chloride 100 mmol/L (98-107); Globulin 2.8 g/dL (1.3-4.6); Glomerular Filtration Rate 73.9 mL/min (90-130); Glucose 326 mg/dL (65-115); Osmolality Calculated 298 mOsm/kg (285-295); Sodium 138 mmol/L (136-145); Total Bilirubin 0.3 mg/dL (0.15-1.2); Total Protein 7.1 g/dL (6.6-8.7)
[2022-12-17 07:42] LABS: Estmated Average Glucose 260; Hemoglobin A1C 10.7 % (4.0-6.0)
== END 2022-12-17 06:31 | disposition home or self-care (01) ==
LOC: LAB 06:32
PROVIDERS: PCP Nurse Practitioner; Visit Provider Nurse Practitioner
DX: E11.65 Type 2 diabetes mellitus with hyperglycemia (principal); R10.10 Upper abdominal pain, unspecified; Z79.4 Long term (current) use of insulin
CPT/HCPCS: 36415; 80053; 81003; 83036; 85025

== ENCOUNTER 2023-03-18 06:27 | Outpatient (CLI) | payer BC, SELFPAY ==
[2023-03-18 07:12] LABS: Alanine Aminotransferase 20 U/L (0-33); Albumin Level 4.1 g/dL (3.5-5.2); Alkaline Phosphatase 69 U/L (35-105); Anion Gap 14.6 (5-19); Aspartate Amino Transferase 13 U/L (0-32); Blood Urea Nitrogen 14 mg/dL (6-20); Calcium 9.7 mg/dL (8.5-10.5); Carbon Dioxide 27 mmol/L (22-29); Chloride 98 mmol/L (98-107); Chol HDL Ratio 4.41 mg/dL (0.0-4.40); Cholesterol 172 mg/dL (0-200); Globulin 3.2 g/dL (1.3-4.6); Glomerular Filtration Rate 73.9 mL/min (90-130); Glucose 323 mg/dL (65-115); HDL Cholesterol 39 mg/dL (60-100); LDL Cholesterol Calculated 90 mg/dL (50-129); LDL HDL Ratio 2.31 RATIO (0.00-3.22); Osmolality Calculated 293 mOsm/kg (285-295); Potassium 4.6 mmol/L (3.5-5.1); Sodium 135 mmol/L (136-145); Total Bilirubin 0.3 mg/dL (0.15-1.2); Total Protein 7.3 g/dL (6.6-8.7); Triglycerides 217 mg/dL (0-150)
[2023-03-18 07:14] LABS: Estmated Average Glucose 240
== END 2023-03-18 06:28 | disposition home or self-care (01) ==
LOC: LAB 06:27
PROVIDERS: PCP Nurse Practitioner; Visit Provider Nurse Practitioner
DX: E11.9 Type 2 diabetes mellitus without complications (principal)
CPT/HCPCS: 36415; 80053; 80061; 83036

== ENCOUNTER → 2023-06-10 08:17 | Outpatient (BNVA) | payer BC, MEDICAID, SELFPAY | PROVIDERS: PCP Nurse Practitioner; Visit Provider Nurse Practitioner | DX: E11.9 Type 2 diabetes mellitus without complications (principal) | CPT/HCPCS: 80053; 80061; 81000; 82607; 83036 ==

== ENCOUNTER → 2023-10-24 16:23 | Outpatient (BNVA) | payer BC, MEDICAID, SELFPAY | PROVIDERS: PCP Nurse Practitioner; Visit Provider Nurse Practitioner | DX: E11.9 Type 2 diabetes mellitus without complications (principal) | CPT/HCPCS: 80053; 83036 ==

== ENCOUNTER → 2024-01-09 16:12 | Outpatient (BNVA) | payer BC, SELFPAY | PROVIDERS: PCP Nurse Practitioner; Visit Provider Nurse Practitioner | DX: E11.65 Type 2 diabetes mellitus with hyperglycemia (principal); Z79.4 Long term (current) use of insulin; E11.9 Type 2 diabetes mellitus without complications | CPT/HCPCS: 80053; 80061; 83036; 84443 ==

== ENCOUNTER → 2024-05-15 16:07 | Outpatient (BNVA) | payer BC, SELFPAY | PROVIDERS: PCP Nurse Practitioner; Visit Provider Nurse Practitioner | DX: E11.65 Type 2 diabetes mellitus with hyperglycemia (principal); Z79.4 Long term (current) use of insulin | CPT/HCPCS: 80053; 80061; 83036 ==

== ENCOUNTER 2025-01-11 07:59 | Outpatient (CLI) | payer BC, SELFPAY ==
[2025-01-11 08:42] LABS: Estmated Average Glucose 169; Hemoglobin A1C 7.5 % (4.0-6.0)
[2025-01-11 08:53] LABS: Creatinine Urine, Random 132 mg/dL (28-217); Microalbum Creatinine Ratio Ur 15 mg/dL (0-20)
[2025-01-11 08:55] LABS: Alanine Aminotransferase 25 U/L (0-33); Albumin Level 4.1 g/dL (3.5-5.2); Alkaline Phosphatase 51 U/L (35-105); Anion Gap 13.3 (5-19); Aspartate Amino Transferase 11 U/L (0-32); Blood Urea Nitrogen 11 mg/dL (6-20); Calcium 9.0 mg/dL (8.5-10.5); Carbon Dioxide 26 mmol/L (22-29); Chloride 101 mmol/L (98-107); Cholesterol 215 mg/dL (0-200); Globulin 3.1 g/dL (1.3-4.6); Glucose 266 mg/dL (65-115); HDL Cholesterol 54 mg/dL (60-100); Osmolality Calculated 291 mOsm/kg (285-295); Potassium 4.3 mmol/L (3.5-5.1); Sodium 136 mmol/L (136-145); Total Protein 7.2 g/dL (6.6-8.7); Triglycerides 99 mg/dL (0-150); VLDL Cholestrol Calculation 20 mg/dL (0-30)
== END 2025-01-11 08:00 | disposition home or self-care (01) ==
PROVIDERS: PCP Nurse Practitioner; Visit Provider Nurse Practitioner
DX: E11.65 Type 2 diabetes mellitus with hyperglycemia (principal); Z79.4 Long term (current) use of insulin
CPT/HCPCS: 36415; 80053; 80061; 82044; 83036